=== PATIENT | male | born 1960 | race African-American/Black ===

== ENCOUNTER 2021-06-04 12:15 | Observation (INO) | payer OTHER, SELFPAY ==
[2021-06-04] VITALS (46 sets, daily range): BP systolic 92–126; BP diastolic 62–84; PULSE 68–92; RESP 14–20; TEMP 36.4–36.9; O2SAT 96–100; BMI 19.5
--- NOTE | ~2021-06-04 | CT_ITS ---
EXAMINATION: CTA chest PE protocol EXAM DATE: 06/04/2021 14:48 INDICATION: Elevated d-dimer. Syncope. TECHNIQUE: Spiral CTA of the chest (pulmonary arteries) was performed with 100 cc Omnipaque 350 intr avenous contrast injection. Images were acquired during the pulmonary arterial phase. Coronal maxi mum intensity projection 3D-reconstructions were created by the technologist on dedicated workstation . Axial, coronal and sagittal reformatted images were reviewed. The dose-length product (DLP) for t his examination was 204.22 mGy-cm. The exposure was tailored according to patient size (auto mA exp osure control), and iterative reconstruction (ASIR) was used as additional dose reduction technique. There is no prior study for comparison. FINDINGS: Pulmonary arteries are well opacified and without intraluminal filling defects. No thora cic aortic dissection. There are a couple of right middle lobe granulomata. The lungs are otherwise clear. There are no pleural or pericardial effusions. Tracheobronchial tree is patent. There is no mediastinal, hilar or axillary lymphadenopathy. There is no pneumothorax. Heart normal in siz e. There is mild coronary arterial calcification, arterial sclerosis. Upper abdomen is unremarkabl e. There is mild thoracic spondylosis without osteoblastic or osteolytic lesions identified. IMPRESSION: 1. No pulmonary emboli or acute cardiopulmonary findings. Reviewed, dictated and finalized at location B.
--- NOTE | ~2021-06-04 | US_ITS ---
EXAMINATION: US carotid duplex BI DATE: 06/05/2021 10:04 INDICATION: Syncope. TECHNIQUE: Grayscale, color Doppler, and pulsed Doppler images of the cervical carotid arteries were obtained. The degree of vessel stenosis is placed in one of the following categories: normal, <50%, 5 0-69%, >=70% but less than near-occlusion, near-occlusion, or total occlusion. Note that percent sten osis relative to normal distal artery lumen diameter is indirectly measured from velocity measurement s as described by Edi, et al. Radiology 2003; 229:340-346. COMPARISON: None. FINDINGS: RIGHT: The right common carotid artery (CCA) peak systolic velocity (PSV) is 106 cm/s. The right internal ca rotid artery (ICA) PSV is 66 cm/s. The right ICA end-diastolic velocity (EDV) is 20 cm/s. The right I CA/CCA PSV ratio is 0.6. Grayscale and color Doppler images yield an estimate of <50% diameter reduct ion from plaque in the ICA. There is antegrade flow in the right vertebral artery. LEFT: The left CCA PSV is 90 cm/s. The left ICA PSV is 51 cm/s. The left ICA EDV is 21 cm/s. The left ICA/C CA PSV ratio is 0.6. Grayscale and color Doppler images yield an estimate of <50% diameter reduction from plaque in the ICA. There is antegrade flow in the left vertebral artery. IMPRESSION: 1. <50% stenosis in the right internal carotid artery. 2. <50% stenosis in the left internal carotid artery. Reviewed, dictated and finalized at location A.
--- NOTE | ~2021-06-04 | XR_ITS ---
EXAMINATION: XR knee LT min 4V EXAM DATE: 06/04/2021 13:16 INDICATION: Fall, knee pain, limited range of motion. Initial encounter. TECHNIQUE: Left knee frontal, crosstable lateral, orthogonal oblique projections for interpretation. There is no prior study for comparison. FINDINGS: There is left knee arthroplasty hardware. There is acute closed posttraumatic mildly commin uted fractures of the left femoral distal metaphysis, proximal to the femoral component of the hardwa re. These are nondisplaced, have been indicated on the exam. Only small joint effusion. No tibial fra cture. Patella is unremarkable. IMPRESSION: Left femoral distal metaphyseal nondisplaced fractures proximal to the femoral component of arthroplasty hardware. Reviewed, dictated and finalized at location B.
--- NOTE | ~2021-06-04 | MR_ITS ---
EXAMINATION: MR brain/brain stem wo con EXAM DATE: 06/06/2021 14:16 INDICATION: Syncope. TECHNIQUE: Magnetic resonance imaging (MRI) of the brain/brain stem obtained without contrast. Sagitt al T1, axial diffusion, gradient echo (T2*), T1, T2, FLAIR sequences obtained. There is no prior st udy for comparison. FINDINGS: There are no areas of restricted diffusion to suggest acute infarction. There is no acute hemorrhage seen on the T2*, a hemosiderin sensitive sequence. No intraparenchymal brain mass. The ve ntricles are normal in size. There are no extra-axial collections. Flow voids are seen in the cereb ral arteries on the T2-weighted sequences consistent with their expected patency. The orbits are unr emarkable. Soft tissue is unremarkable. IMPRESSION: Unremarkable brain MRI examination. Reviewed, dictated and finalized at location A.
--- NOTE | ~2021-06-04 | CT_ITS ---
EXAMINATION: CT brain wo [facility] EXAM DATE: 06/04/2021 13:06 INDICATION: Syncope, on anticoagulation. TECHNIQUE: Spiral CT of the head was performed without contrast. Axial, coronal and sagittal images were reviewed. The dose-length product (DLP) for this examination was 605.33 mGy-cm. The exposure w as tailored according to patient size, and iterative reconstruction (ASIR) was used as additional dos e reduction technique. There is no prior study for comparison. FINDINGS: Mild cerebral atrophy. There is no acute intraparenchymal hemorrhage. No evidence of intra parenchymal brain mass lesion. No evidence of acute infarction. There is no mass effect or midline shift. The ventricles are normal in size. There are no extra-axial collections. There are no acute calvarial fractures. The orbits are unremarkable. Soft tissue is unremarkable. The visualized sinu ses and mastoid air cells are well aerated. IMPRESSION: 1. No acute intracranial findings. Reviewed, dictated and finalized at location B.
--- NOTE | 2021-06-04 12:23 | ED.SYNCOPE ---
HPI - Syncope General Chief Complaint: Syncope Stated Complaint: syncope Source: patient, family and EMS Mode of arrival: EMS Limitations: no limitations History of Present Illness HPI narrative: Patient is a 61-year-old male with a history of hypertension, DVT, anticoagulated on eliquis, presenting for evaluation of syncopal event. Patient states that he was finishing breakfast, had finished watching television when he stood up to walk to the bathroom. Patient states that he woke up on the floor. He denies any prodromal symptoms such as lightheadedness, dizziness, palpitations. Patient thinks that he may have hit his head. He reports a dull, aching posterior headache pain. He denies neck pain. He states his vision was initially blurred but is now normal. He denies nausea or vomiting. He denies chest pain, shortness of breath prior to the syncopal event or afterwards. Patient's states that she found him collapsed on the floor, and when she approached him he was having difficulty standing due to pain in his left knee. She was able to get him up into the bathroom, when he passed out again in the bathroom. She states that he did have some shaking activity but was not sure if he was having a seizure. No tongue biting or urinary incontinence. No fecal incontinence patient then awakened, was not confused. EMS had been called and they transferred him to this facility. In the past, patient has been seen at the [facility]. He reports only left knee pain and headache pain at the time of my assessment. He denies any recent car or air travel. No recent surgery or immobility. He denies history of syncopal event in the past. Patient denies any fever, chills, nausea or vomiting. No abdominal pain. No back pain. Denies urinary symptoms. States his oral intake has been normal for him. Related Data Home Medications Medication Instructions Recorded Confirmed amlodipine 10 mg PO DAILY 06/04/21 apixaban 5 mg PO DAILY 06/04/21 06/04/21 omeprazole 40 mg PO DAILY 06/04/21 sildenafil 100 mg PO DAILY 06/04/21 Allergies Allergy/AdvReac Type Severity Reaction Status Date / Time No Known Allergies Allergy Verified 06/04/21 12:24 Review of Systems Review of Systems: CONSTITUTIONAL: Denies fever, chills, or sweats. EYES: Denies visual changes, redness, or discharge. ENT: Denies rhinorrhea, congestion, sore throat, or otalgia. CARDIOVASCULAR: Denies chest pain, palpitations, or edema. RESPIRATORY: Denies cough or dyspnea. GASTROINTESTINAL: Denies abdominal pain, nausea, vomiting, or diarrhea. GENITOURINARY: Denies dysuria or hematuria. SKIN: Denies rash or itching. MUSCULOSKELETAL: Denies back pain, reports left knee pain NEUROLOGIC:Reports mild headache without numbness, or weakness. [facility] Social History Social History (Updated 06/04/21 @ 13:58 by Felicity Otto MD) Alcohol intake: never Substance use: never Living arrangements: with family Gender identity (if verbalized by the patient): Male Exam Narrative: GENERAL: Awake, alert, conversant HEAD: Normocephalic, atraumatic. EYES: 2+ PERRLA and EOMI. ENT: Nares clear, no rhinorrhea or epistaxis. Mucous membranes moist. NECK: Supple. CHEST: No respiratory distress, breathing even and non labored HEART: Regular rate, sinus rhythm ABDOMEN:Non distended, non tender EXTREMITIES: There is a knee effusion of the left knee. Tenderness to palpation of the patella. Decreased active range of motion with flexion extension secondary to pain. Intact distally. Popliteal pulse 2+. Posterior tibialis pulse 2+. SKIN: Warm, dry, no rash. NEURO:No focal deficits. Alert and oriented x3. Finger to nose intact bilaterally. EOMs intact without nystagmus. No facial droop/asymmetry noted bilaterally. Grimace intact. Intact sensation in face. Hearing intact bilaterally. Shoulder shrug intact. Strength 5/5 bilateral upper extremities. Strength 5/5 bilateral lower extrem
--- NOTE | 2021-06-04 12:28 | ECG_ITS ---
Measurements Intervals [place] Rate: 70 P: 85 ME: 176 QRS: 78 QRSD: 89 T: 77 QT: 389 QTc: 421 Interpretive Statements SINUS RHYTHM BASELINE ARTIFACT- I, II, III, AVR, AVL, AVF, V1-V6 NORMAL ECG Electronically Signed On 06-04-2021 13:51:12 CDT by Tereso Stuart D.O.
--- NOTE | 2021-06-04 12:57 | PC.NURSE ---
Pt to CT.
[2021-06-04] MEDS: SODIUM CHLORIDE 0.9% IV 1,000 ML 999 ML IV CONT (13:22)
[2021-06-04] MEDS: ONDANSETRON INJ 4 MG/2 ML VIAL IV PUSH (13:22)
[2021-06-04] MEDS: ACETAMINOPHEN 500 MG TABLET 1000 MG PO (13:22)
[2021-06-04 13:52] LABS: Basophils Percent Auto 0.4 % (0.2-1.2); Eosinophils Percent Auto 0.5 % (0-4.4); Hemoglobin 11.7 g/dL (14.0-18.0); Immature Granulocyte Absolute 0.04 K/mm3 (0.00-0.031); Immature Granulocyte Percent A 0.5 % (0-0.5); Lymphocytes Absolute Auto 1.31 K/mm3 (0.9-3.2); Lymphocytes Percent Auto 16.6 % (18.3-44.2); Mean Corpuscular HGB Conc 35.5 g/dl (32-36); Mean Corpuscular Hemoglobin 38.1 pg (26-34); Mean Corpuscular Volume 107.5 fl (80-100); Mean Platelet Volume 9.6 fl (7.4-10.4); Monocytes Absolute Auto 0.5 K/mm3 (0.1-0.6); Monocytes Percent Auto 6.8 % (2.6-8.5); Neutrophils Percent Auto 75.2 % (45.5-73.1); Platelet Count Result 152 k/mm3 (150-375); Red Blood Count 3.07 M/mm3 (4.6-6.20); Red Cell Distribution Width 13.7 % (11.5-14.5); White Blood Count 7.9 K/mm3 (4.5-10.0)
[2021-06-04] MEDS: MORPHINE SULFATE (*CRX) 4 MG/ML INJ IV PUSH (13:53)
[2021-06-04 14:04] LABS: Anion Gap 13 mmol/L (8-16); Blood Urea Nitrogen 12 mg/dL (9-20); Calcium 8.7 mg/dL (8.4-10.2); Carbon Dioxide 21 mmol/L (22-30); Chloride 103 mmol/L (98-107); Estimated CRCL calculation 42 ml/min; Estimated Glomerular Filt Rate 54; Glucose 94 mg/dL (65-110); Potassium 3.5 mmol/L (3.4-5.0); Sodium 137 mmol/L (137-145)
[2021-06-04 14:07] LABS: Prothrombin Time 12.9 Seconds (11.1-14.7)
[2021-06-04 14:08] LABS: Partial Thromboplastin Time 26.7 SECONDS (22.3-36.8)
[2021-06-04 14:20] LABS: Troponin I < 0.012 ng/mL (0.000-0.034)
[2021-06-04 14:24] LABS: D Dimer 6.16 ug/mL (<0.48)
[2021-06-04] MEDS: oxyCODONE HCL (*CRX) 5 MG TAB IR PO (15:56)
--- NOTE | 2021-06-04 16:00 | PM.IMHP ---
H&P: HPI History of Present Illness Date/Time: 06/04/21 16:00 Chief Complaint: Syncope. Narrative: This is a very pleasant 61-year-old male smoker with hypertension, GERD, and history of DVT on anticoagulation who presented to the emergency department earlier today via EMS from home for evaluation after a syncopal episode. He was in his usual state of health when he woke this morning and not long after eating breakfast he felt as though he had to have a bowel movement and he stood up to walk to the bathroom. Shortly thereafter his heard him fall in the hallway and she found him lying on his back. He did not recall how he ended up on the floor. was able to help him up however he had 2 subsequent episodes where he seemed to briefly lose consciousness and thus she called 911. He denies antecedent symptoms prior to his fall, specifically denying lightheadedness, dizziness, vertigo, chest pain, pleuritic pain, palpitations, nausea, vomiting, and sweats. There were no reports of seizure activity and there was no tongue biting or incontinence. He was not confused when he came to but did note that his vision was a little bit blurry when he awoke though that has resolved. He thinks he struck the back of his head on the floor and has a mild aching discomfort posteriorly. His main complaint however is of left knee pain in fact he was found to have nondisplaced fractures proximal to the femoral component of left arthroplasty hardware. Currently has no complaints. Review of Systems Review of Systems: Twelve systems were reviewed. No fever, chills, or sweats. No recent cold or flu symptoms. He has lost about 15 lb unintentionally over several months due to poor appetite and he had an endoscopy done not long ago at the [facility] which was reportedly unremarkable. He has also had a fairly recent colonoscopy and PSA, both which were unremarkable. No melena or hematochezia. He has not had diarrhea. No dysuria. No exertional chest pain or shortness of breath. No pleuritic pain. Except as documented, all other systems were reviewed and are negative. [facility] Past Medical History Medical History (Updated 06/05/21 @ 00:34 by Tsering Simental PA-C) Arthritis Deep venous thrombosis Gastroesophageal reflux disease Hypertension Nicotine dependence Pancreatitis Surgical History Surgical History History of bilateral knee arthroplasty Family History Family History (Updated 06/05/21 @ 00:29 by Tsering Simental PA-C) Other Cancer Social History Social History (Updated 06/05/21 @ 00:30 by Tsering Simental PA-C) Social History: Surrogate decision maker: Kavita Evans, . Code status: Full code. Smoking packs per day: 1 Smoking cigarettes per day: 20.0 Years smoked: 45 Smoking pack-years: 45.00 Smoking status: Current every day smoker Alcohol intake: current Drinks per week: 13 Substance use: never Living arrangements: with family Additional living arrangements comments: The patient lives with his in [place]. Additional occupation/education comments: [employer] . Meds Home Medications and Allergies Home Medications Medication Instructions Recorded Confirmed Type amlodipine 10 mg PO DAILY 06/04/21 06/04/21 History apixaban 2.5 mg PO BID 06/04/21 06/04/21 History omeprazole 40 mg PO DAILY 06/04/21 06/04/21 History sildenafil 100 mg PO DAILY PRN 06/04/21 06/04/21 History Allergies Allergy/AdvReac Type Severity Reaction Status Date / Time No Known Allergies Allergy Verified 06/04/21 12:24 Vital Signs Vital Signs - 24 hr 06/04/21 12:18 06/04/21 12:19 06/04/21 12:20 Temperature 97.6 F Pulse Rate 70 73 84 Respiratory Rate 16 20 20 Blood Pressure 103/64 103/64 Pulse Oximetry 100 98 06/04/21 12:37 06/04/21 12:45 06/04/21 12:46 Temperature Pulse Rate 69 72 70 Respiratory Rate 14 18 17 Blood
--- NOTE | 2021-06-04 17:00 | PC.NURSE ---
Report given to FALGUNI Goldberg. Room not clean at this time.
--- NOTE | 2021-06-04 18:00 | PC.NURSE ---
Pt and family updated. Waiting for room to be cleaned to transport to floor.
--- NOTE | 2021-06-04 21:11 | PC.NURSE ---
This patient, Ty Evans, was admitted to Medical Room 343-01. Patient/family oriented to hospital policies and general routines including ID bracelet, bed and alarms, visiting hours, pain management, procedures, bathroom and other care routines, personal items, smoking policy, room service/diet, and visiting hours. Information on how to activate the Rapid Response Team has been discussed. Patient/Family are encouraged to report perceived risks to care and to ask questions if they do not understand what they are told or what they should do. Immobilizer to left leg in place.
[2021-06-04] MEDS: ACETAMINOPHEN 325 MG TABLET 650 MG PO (21:45)
[2021-06-05] VITALS (12 sets, daily range): BP systolic 109–134; BP diastolic 68–78; PULSE 72–107; RESP 16–18; TEMP 36.1–37.1; O2SAT 100; BMI 19.5
--- NOTE | 2021-06-05 00:36 | ECHO_ITS ---
Patient Info Name: Ty Evans Age: 61 years : 1960 Gender: Male Ht: 72 in Wt: 143 lbs BSA: 1.80 m2 HR: 97 bpm BP: 127 / 72 mmHg Heart Rhythm: Sinus Rhythm Technical Quality: Fair Exam Date: 06/05/2021 12:18 PM Exam Location: [facility] Pulmonary Exam Room: 343 Patient Status: Outpatient Admit Date: 06/04/2021 Staff Ordering Physician: Tsering Simental PA-C Research Program Manager: Temitope Rosales RDCS Attending Provider: Blanca Archuleta PA-C Referring Physician: Hola IRVING; Exam Type: CA echo doppler color flow Study Info Indications - SYNCOPE HTN Complete two-dimensional, color flow and Doppler transthoracic echocardiogram is performed. Summary 1. Complete two-dimensional, color flow and Doppler transthoracic echocardiogram is performed. 2. Left ventricular chamber size wall thickness are normal with no regional wall motion abnormalities. The left ventricular function was at the lower limit of normal with a calculated ejection fraction of 56%, and a visually estimated ejection fraction of 50-55%. Grade 1 diastolic dysfunction is present. 3. Left atrial chamber dimension is borderline enlarged. 4. Mild pulmonary hypertension, estimated pulmonary arterial systolic pressure is 36 mmHg. 5. Trace mitral and tricuspid regurgitation. 6. Somewhat technically difficult study; the best views were subcostal. 7. Normal sinus rhythm. Left Ventricle Left ventricular chamber dimension is normal. Left ventricular systolic function is normal, estimated at 50-55%. There is no increased left ventricular wall thickness. Left ventricular septal wall motion is normal. The left ventricular diastolic function is grade I diastolic dysfunction. Left ventricular chamber size wall thickness are normal with no regional wall motion abnormalities. The left ventricular function was at the lower limit of normal with a calculated ejection fraction of 56%, and a visually estimated ejection fraction of 50-55%. Grade 1 diastolic dysfunction is present. Right Ventricle Right ventricular chamber dimension is normal. Right ventricular systolic function is normal. Left Atria Left atrial chamber dimension is borderline enlarged. Right Atria Right atrial chamber dimension is normal. Aortic Valve The aortic valve is trileaflet. There is no aortic valve sclerosis. There is no aortic valve stenosis. There is no aortic valve regurgitation. Pulmonic Valve The pulmonic valve is normal. There is no pulmonic valve stenosis. There is trace pulmonic regurgitation. Mitral Valve The mitral valve has normal leaflets and thickened leaflets. There is no mitral valve stenosis. There is trace mitral valve regurgitation. Tricuspid Valve The tricuspid valve leaflets are normal. There is no significant tricuspid valve stenosis. There is trace tricuspid valve regurgitation. Mild pulmonary hypertension, estimated pulmonary arterial systolic pressure is 36 mmHg. Pericardium/Pleural The pericardium appears normal. There is no pericardial effusion. Inferior Vena Cava Normal inferior vena cava with >50% collapse upon inspiration consistent with Empty right atrial pressure, 10 mmHg. Aorta The aortic root size at the sinus of Valsalva is normal. The prox ascending aorta size is normal. Left Ventricular Outflow Tract Name Value Normal
[2021-06-05] MEDS: SODIUM CHLORIDE 0.9% IV 1,000 ML 100 ML IV CONT (01:15)
[2021-06-05] MEDS: HYDROcodone/acetaminophen (*CRX) 5-325 MG TABLET 1 TAB PO ×2 (01:17→08:46)
[2021-06-05] MEDS: amLODIPine BESYLATE 5 MG TABLET 10 MG PO (08:46)
[2021-06-05] MEDS: PANTOPRAZOLE 40 MG TABLET PO (08:46)
[2021-06-05] MEDS: APIXABAN 2.5 MG TABLET PO ×2 (08:46→17:13)
--- NOTE | 2021-06-05 10:00 | PCOTNOTE ---
Attempted to evaluated for occupational therapy. Pt. away from room for ultrasound. Will return later.
[2021-06-05 10:26] LABS: Basophils Percent Auto 0.3 % (0.2-1.2); Eosinophils Absolute Auto 0.1 K/mm3 (0-0.3); Eosinophils Percent Auto 1.7 % (0-4.4); Hematocrit 34.9 % (42.0-52.0); Immature Granulocyte Absolute 0.02 K/mm3 (0.00-0.031); Immature Granulocyte Percent A 0.3 % (0-0.5); Lymphocytes Absolute Auto 1.37 K/mm3 (0.9-3.2); Lymphocytes Percent Auto 21.3 % (18.3-44.2); Mean Corpuscular HGB Conc 34.4 g/dl (32-36); Mean Corpuscular Volume 107.7 fl (80-100); Mean Platelet Volume 9.8 fl (7.4-10.4); Monocytes Absolute Auto 0.7 K/mm3 (0.1-0.6); Monocytes Percent Auto 10.7 % (2.6-8.5); Neutrophils Absolute Auto 4.2 K/mm3 (1.3-6.7); Neutrophils Percent Auto 65.7 % (45.5-73.1); Platelet Count Result 146 k/mm3 (150-375); Red Blood Count 3.24 M/mm3 (4.6-6.20); Red Cell Distribution Width 13.4 % (11.5-14.5); White Blood Count 6.4 K/mm3 (4.5-10.0)
[2021-06-05 10:39] LABS: Anion Gap 12 mmol/L (8-16); Blood Urea Nitrogen 8 mg/dL (9-20); Calcium 8.8 mg/dL (8.4-10.2); Carbon Dioxide 20 mmol/L (22-30); Chloride 104 mmol/L (98-107); Estimated CRCL calculation 70 ml/min; Estimated Glomerular Filt Rate > 60; Glucose 98 mg/dL (65-110); Potassium 3.3 mmol/L (3.4-5.0); Sodium 136 mmol/L (137-145)
[2021-06-05] MEDS: diazePAM (*CRX) 5 MG TABLET PO (10:58)
--- NOTE | 2021-06-05 11:58 | PM.IMPN ---
Progress Note: A&P Assessment and Plan (1) Syncope: Code(s): R55 - Syncope and collapse Status: Acute Assessment and Plan: The patient presented to the emergency department earlier this morning from home after multiple syncopal episodes. Significant other states he passed out while walking into the bathroom. She was able to sit in up on the side of the tub where he had a second, then, third syncopal episode. He was not postictal or having any seizure like activity. She states he does not drink much fluids during the day. Work up shows no signs of infection CTA Chest/Abd/Pelvis Further syncope work up being completed: Echo, MRI Brain, Carotid US which are pending at this time The patient did sustain a fracture proximal to the arthroplasty hardware in the left knee and he has been placed in a brace. A bed was not available at the [place] where he had his knee replaced and Dr. Pruitt was consulted from the ER and I saw him in the [facility] who recommended nonweightbearing for a few weeks until he sees his orthopedic specalist at the [place]. Keep the Brace on while out of bed moving around for stabilization. Can bend at the knee, place pillow under leg as needed for comfort. 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 I will HOLD Amlodipine due to lightheadedness this afternoon and low/normal BP. Continue monitoring. (6) Renal insufficiency: Code(s): N28.9 - Disorder of kidney and ureter, unspecified Status: Acute Assessment and Plan: Patient does have an elevated creatinine though he has no known history of renal insufficiency. Creatinine normalized with IV fluids in the ER. Now Creatinine is normal. This does show dehydration and possible reason why he had passed out. Pending Records that were requested from [place] for comparison. (7) Nicotine dependence: Code(s): F17.200 - Nicotine dependence, unspecified, uncomplicated Status: Acute Assessment and Plan: Smoking cessation encouraged for 3 minutes. Time Spent With Patient Time with patient: 25 - 35 minutes Subjective Date/time seen: 06/05/21 11:58 Interval history: Date of Service 06/05/21: The patient states he is feeling a little lightheaded at this time while sitting up eating lunch and after just receiving some pain medications and muscle relaxant. BP was 109/78. He denies any chest pain, SOB, cough, fever, chills, nausea, vomiting, abdominal pain, dysuria, frequent urination, trouble with urination, foul odor to urine, leg swelling, calf pain or any other symptms at this time. Review of Systems Review of Systems: All systems reviewed & are unremarkable except as noted in HPI and below Exam Narrative: General: 61-year-old man sitting up in the chair with left leg in immobilization brace eating lunch. Appears comfortable. In no acute distress. Skin: No jaundice or cyanosis. Good skin turgor. Neck: Full range of motion. Supple. Respiratory: Decreased breath sounds bilaterally, no wheezing, rales or rhonchi. No bony chest wall tenderness. Cardiovascular: The heart has a regular rate and rhythm without murmur. Lower extremities: Left leg in immobilization brace. NVID
[2021-06-05 13:05] LABS: Iron 33 ug/dL (49-181)
[2021-06-05 13:12] LABS: Magnesium 1.2 mg/dL (1.6-2.3)
[2021-06-05 13:15] LABS: Percent Iron Saturation 15 % (20-50)
[2021-06-05] MEDS: POTASSIUM CHLORIDE 20 MEQ TABLET 40 MEQ PO (13:52)
[2021-06-05] MEDS: HYDROcodone/acetaminophen (*CRX) 7.5-325 MG TABLET 1 TAB PO ×3 (13:52→21:23)
[2021-06-05 14:24] LABS: Folic Acid 4.6 ng/mL (2.76->20)
[2021-06-05] MEDS: MAGNESIUM SULF 4 GM/WATER100ML 4 GM/100 ML BAG IVPB (17:13)
[2021-06-05] MEDS: CYANOCOBALAMIN 1,000 MCG TABLET 1000 MCG PO (17:13)
[2021-06-05] MEDS: CYCLOBENZAPRINE HCL 10 MG TABLET PO (20:12)
[2021-06-06] VITALS (7 sets, daily range): BP systolic 112–118; BP diastolic 69–81; PULSE 80–106; RESP 16–20; TEMP 36.3–37; O2SAT 100
[2021-06-06] MEDS: HYDROcodone/acetaminophen (*CRX) 7.5-325 MG TABLET 1 TAB PO ×2 (05:26→12:18)
[2021-06-06 06:07] LABS: Hemoglobin 11.6 g/dL (14.0-18.0); Mean Corpuscular HGB Conc 35.2 g/dl (32-36); Mean Corpuscular Hemoglobin 37.1 pg (26-34); Mean Corpuscular Volume 105.4 fl (80-100); Mean Platelet Volume 10.3 fl (7.4-10.4); Platelet Count Result 147 k/mm3 (150-375); Red Blood Count 3.13 M/mm3 (4.6-6.20); Red Cell Distribution Width 13.4 % (11.5-14.5); White Blood Count 4.9 K/mm3 (4.5-10.0)
[2021-06-06 06:25] LABS: Anion Gap 8 mmol/L (8-16); Blood Urea Nitrogen 7 mg/dL (9-20); Calcium 8.5 mg/dL (8.4-10.2); Carbon Dioxide 24 mmol/L (22-30); Chloride 101 mmol/L (98-107); Estimated CRCL calculation 70 ml/min; Estimated Glomerular Filt Rate > 60; Glucose 88 mg/dL (65-110); Magnesium 1.8 mg/dL (1.6-2.3); Potassium 3.1 mmol/L (3.4-5.0); Sodium 133 mmol/L (137-145)
[2021-06-06] MEDS: APIXABAN 2.5 MG TABLET PO ×2 (08:01→16:33)
[2021-06-06] MEDS: CYANOCOBALAMIN 1,000 MCG TABLET 1000 MCG PO (08:01)
[2021-06-06] MEDS: CYCLOBENZAPRINE HCL 10 MG TABLET PO ×2 (08:01→15:36)
[2021-06-06] MEDS: PANTOPRAZOLE 40 MG TABLET PO (08:01)
[2021-06-06] MEDS: POTASSIUM CHLORIDE 20 MEQ TABLET 60 MEQ PO (09:20)
--- NOTE | 2021-06-06 13:46 | PCOTNOTE ---
Attempted to see pt for therapy however, pt was being prepared to go have an MRI done. Will continue per poc duration/frequency tomorrow.
--- NOTE | 2021-06-06 15:55 | PM.DS ---
DS: Admitting Diagnosis Discharge Date 06/06/21 Admitting Diagnosis Syncope, leg pain DS: Discharge Diagnosis Discharge Diagnosis (1) Syncope: Code(s): R55 - Syncope and collapse Status: Acute Assessment and Plan: The patient is a 61 year old man with a history of tobacco abuse, HTN, Hx DVT on prophylactic therapy with Eliquis, presented to the emergency department from home after multiple syncopal episodes. Significant other states he passed out while walking into the bathroom. She was able to sit in up on the side of the tub where he had a second, then, third syncopal episode. He was not postictal or having any seizure like activity. She states he does not drink much fluids during the day. Work up shows no signs of infection or PE on CTA Chest/Abd/Pelvis Further syncope work up completed with- -- Echo showing Left ventricular chamber size wall thickness are normal with no regional wall motion abnormalities. The left ventricular function was at the lower limit of normal with a calculated ejection fraction of 56%, and a visually estimated ejection fraction of 50-55%. Grade 1 diastolic dysfunction is present. Mild pulmonary HTN. -- MRI Brain showing Unremarkable brain MRI examination. -- Carotid US showing <50% stenosis in the right internal carotid artery and <50% stenosis in the left internal carotid artery. -- Telemetry showing NSR rate 73 bpm with very few PVCs, otherwise no acute abnormality. After IV fluid hydration the patients creatinine improved from 1.6 to normal 0.9 showing that he was dehydrated on arrival which could be the cause of his syncopal episodes prior to arrival. I also stopped his Norvasc because he BP has been normal here and want to prevent hypotension from over medication He is feeling well at this time without any complaints of lightheadedness or syncope. The patient did sustain a fracture proximal to the arthroplasty hardware in the left knee and he has been placed in a brace. A bed was not available at the [facility] where he had his knee replaced and Dr. Pruitt was consulted from the ER and I saw him in the [facility] [place] who recommended nonweightbearing for a few weeks until he sees his orthopedic specalist at the [place]. Keep the Brace on while out of bed moving around for stabilization. Can bend at the knee, place pillow under leg as needed for comfort. He will be discharged on Flexeril 10 mg TID for muscle spasms and [place] as needed for pain control. Continue home apixaban Follow up with [facility] specialist in 1 week. The patient worked with PT/OT and feels comfortable with going home with home health at this time. Return to ER warnings given. Found to have hypomagnesemia and hypokalemia which were replenished. Also found to be vitamin B12 deficient and started on Cyanocobalamin daily. (2) Closed left femoral fracture: Code(s): S72.92XA - Unspecified fracture of left femur, initial encounter for closed fracture Status: Acute Assessment and Plan: See above (3) Current use of usp anticoagulation: Code(s): Z79.01 - USP (current) use of anticoagulants Status: Acute Assessment and Plan: Continue eliquis (4) Hypertension: Code(s): I10 - Essential (primary) hypertension Status: Acute (5) Gastroesophageal reflux disease: Code(s): K21.9 - Gastro-esophageal reflux disease without esophagitis Status: Acute (6) Renal insufficiency: Code(s): N28.9 - Disorder of kidney and ureter, unspecified Status: Acute (7) Nicotine dependence: Code(s): F17.200 - Nicotine dependence, unspecified, uncomplicated Status: Acute (8) Macrocytic anemia: Code(s): D53.9 - Nutritional anemia, unspecified Status: Acute (9) Vitamin B12 deficiency: Code(s): E53.8 - Deficiency of other specified B group vitamins Status: Acute (10) Hypokalemia: Code(s): E8
== END 2021-06-06 17:42 | disposition home health service (06) ==
LOC: ANHED 15:30 → ANH3MED 19:50
PROVIDERS: Physician Assistant; Admitting Provider Family Medicine; Emergency Provider Emergency Medicine; Visit Provider Internal Medicine
DX: R55 Syncope and collapse (principal); S72.492A Other fracture of lower end of left femur, initial encounter for closed fracture; M97.12XA Periprosthetic fracture around internal prosthetic left knee joint, initial encounter; W19.XXXA Unspecified fall, initial encounter; D53.9 Nutritional anemia, unspecified; E87.6 Hypokalemia; E53.8 Deficiency of other specified B group vitamins; I10 Essential (primary) hypertension; F17.290 Nicotine dependence, other tobacco product, uncomplicated; K21.9 Gastro-esophageal reflux disease without esophagitis; N28.9 Disorder of kidney and ureter, unspecified; Z86.718 Personal history of other venous thrombosis and embolism; Z79.01 Long term (current) use of anticoagulants; Z96.653 Presence of artificial knee joint, bilateral
CPT/HCPCS: 36415; 70450; 70551; 71275; 73564; 80048; 82607; 82728; 82746; 83540; 83550; 83735; 84443; 84484; 85025; 85027; 85380; 85610; 85730; 93005; 93306; 93880; 96361; 96374; 96375; 97110; 97162; 97166; 97530; 99285; A9270; G0378; J2270; J2405; J3475; J7030; Q9967

== ENCOUNTER 2022-06-23 15:44 | Observation (INO) | payer OTHER, SELFPAY ==
--- NOTE | ~2022-06-23 | US_ITS ---
EXAMINATION: US abdomen limited DATE: 06/24/2022 12:06 INDICATION: Abnormal liver function tests. TECHNIQUE: Multiple grayscale and Doppler ultrasound images of the abdomen were obtained. COMPARISON: Chest CT 06/04/2021 FINDINGS: The visualized portions of the head, body, and tail of the pancreas are normal. There is di ffuse hepatic steatosis. There is normal flow in main portal vein. The gallbladder is normal in size and contains sludge. No gallstones or gallbladder wall thickening. There is no sonographic [place] sig n. The common duct is normal and measures 5 mm. IMPRESSION: 1. Diffuse hepatic steatosis. Reviewed, dictated and finalized at location A. ESY TEACHER
--- NOTE | ~2022-06-23 | MR_ITS ---
EXAMINATION: MR brain/brain stem wo/w con DATE: 06/24/2022 12:13 INDICATION: Syncope. TECHNIQUE: Magnetic resonance imaging (MRI) of the brain and brainstem was performed without and with 13 mL MultiHance intravenous contrast. COMPARISON: Head CT 06/04/2021, brain MRI 06/06/2021 FINDINGS: There are scattered areas of nonspecific increased T2-weighted signal intensity in the cere bral white matter, which is within normal limits for the patient's age. There is no intracranial hemo rrhage, acute infarction, or abnormal intracranial mass lesion. The ventricles are normal in size. Th e orbits are normal. There is mild mucosal thickening in the paranasal sinuses. The mastoid air cells are normal. IMPRESSION: 1. Normal aging brain. Reviewed, dictated and finalized at location A. NICAL INTERNSHIP IMPRESSION: 1. Normal aging brain.
--- NOTE | ~2022-06-23 | US_ITS ---
EXAMINATION: US carotid duplex BI DATE: 06/24/2022 12:01 INDICATION: Vertigo. TECHNIQUE: Grayscale, color Doppler, and pulsed Doppler images of the cervical carotid arteries were obtained. The degree of vessel stenosis is placed in one of the following categories: normal, <50%, 5 0-69%, >=70% but less than near-occlusion, near-occlusion, or total occlusion. Note that percent sten osis relative to normal distal artery lumen diameter is indirectly measured from velocity measurement s as described by Edi, et al. Radiology 2003; 229:340-346. Notes: Normal: Peak systolic velocity <125 centimeters/sec and no plaque <50%. Peak systolic velocity <125 ( EDV <40; ICA/CCA PSV ratio <2.0; used these factors only a tandem lesions or low cardiac output or co ntralateral disease) 50-69 %: PSV 125-230 (EDV 40-100; ratio 2-4) >= 70% but less than near occlusion: PSV greater than 230 (EDV > 100; ratio> 4.0) Near Occlusion: PSV that is variable; markedly narrowed lumen Occlusion: Absent flow on color/spectral Doppler and no lumen on diamond scale. COMPARISON: Ultrasound dated 06/05/2021. FINDINGS: RIGHT: The right common carotid artery (CCA) peak systolic velocity (PSV) is 96 cm/s. The right internal car otid artery (ICA) PSV is 64 cm/s. The right ICA end-diastolic velocity (EDV) is 23 cm/s. The right IC A/CCA PSV ratio is 0.7. The external carotid artery (ECA) PSV is 83 cm/s. There is antegrade flow in the right vertebral artery. LEFT: The left CCA PSV is 108 cm/s. The left ICA PSV is 65 cm/s. The left ICA EDV is 26 cm/s. The left ICA/ CCA PSV ratio is 0.6. The ECA PSV is 54 cm/s. There is antegrade flow in the left vertebral artery. IMPRESSION: 1. Less than 50% stenosis in the right internal carotid artery by sonographic criteria. 2. Less than 50% stenosis in the left internal carotid artery by sonographic criteria. Reviewed, dictated and finalized at location A. NG FRAME TENDER IMPRESSION: 1. Less than 50% stenosis in the right internal carotid artery by sonographic c kim. 2. Less than 50% stenosis in the left internal carotid artery by sonographic cr socrates.
[2022-06-23 15:51] VITALS: BP 104/78; PULSE 90; RESP 16; TEMP 36.8; O2SAT 100
--- NOTE | 2022-06-23 16:25 | ECG_ITS ---
Measurements Intervals [place] Rate: 79 P: 76 [place]: 171 QRS: 56 QRSD: 81 T: 59 QT: 343 QTc: 394 Interpretive Statements SINUS RHYTHM NORMAL ECG COMPARED TO ECG 06/04/2021 12:19:56 NO SIGNIFICANT CHANGES Electronically Signed On 06-23-2022 20:28:32 ERECTOR OPERATOR by Tereso Stuart D.O.
--- NOTE | 2022-06-23 16:26 | ED.SYNCOPE ---
HPI - Syncope General Chief Complaint: Seizure Stated Complaint: seizure Time Seen by Provider: 06/23/22 16:18 History of Present Illness HPI narrative: Pt got up and was standing and got lightheaded and was not responding. Daughter was there and said he was shaking a bit and not responding and she lowered him to the floor. Once lying down pt immediately responsive. Pt denies CP or SOB. Pt has intermittent abdominal pain but not now. Pt has pancreatitis history. Related Data Home Medications Medication Instructions Recorded Confirmed amlodipine 10 mg tablet 10 mg PO DAILY 06/04/21 06/04/21 apixaban 5 mg tablet 2.5 mg PO BID 06/04/21 06/04/21 omeprazole 40 mg capsule,delayed 40 mg PO DAILY 06/04/21 06/04/21 release sildenafil 100 mg tablet 100 mg PO DAILY PRN Erectile 06/04/21 06/04/21 Dysfunction Allergies Allergy/AdvReac Type Severity Reaction Status Date / Time No Known Allergies Allergy Verified 06/23/22 15:56 Review of Systems Review of Systems: All systems reviewed & are unremarkable except as noted in HPI and below PMFSH Past Medical History Medical History (Updated 06/23/22 @ 19:27 by Latha Vega III, DO) Arthritis Deep venous thrombosis Gastroesophageal reflux disease Hypertension Nicotine dependence Pancreatitis Surgical History Surgical History History of bilateral knee arthroplasty Family History Family History (Updated 06/05/21 @ 00:29 by Tsering Simental PA-C) Other Cancer Social History Social History (Updated 06/05/21 @ 00:30 by Tsering Simental PA-C) Social History: Surrogate decision maker: Kavita Evans, . Code status: Full code. Smoking packs per day: 1 Smoking cigarettes per day: 20.0 Years smoked: 45 Smoking pack-years: 45.00 Smoking status: Current every day smoker Alcohol intake: current Drinks per week: 13 Substance use: never Additional living arrangements comments: The patient lives with his in [place]. Additional occupation/education comments: Disabled [employer] . Spiritual care concerns: No Exam Const: General: healthy appearing Nutritional Appearance: well nourished Orientation/consciousness: patient oriented x3 Limitations: no limitations Eyes: Pupils: Equal, round and reactive pupils present EOM: EOMs intact bilaterally Chest: Chest palpation & inspection: normal inspection of the chest Resp: Effort & Inspection: normal respiratory effort Auscultation: clear to auscultation bilaterally Cardio: Rate: regular rate Rhythm: regular rhythm GI: GI Palp: Yes Soft to palpation Auscultation: normal bowel sounds Skin: General skin exam: normal color Rashes: no rashes Neuro: General: patient oriented x3 and moves all extremities Cranial nerves: Yes Nystagmus not present Speech: normal speech Extrem: General: normal to inspection and no clubbing, cyanosis or edema Psych: Mental Status: mental status grossly normal Affect: normal affect Attitude: cooperative Course Vital Signs Vital signs: Vital Signs Temperature 98.2 F 06/23/22 15:51 Pulse Rate 90 06/23/22 15:51 Respiratory Rate 16 06/23/22 15:51 Blood Pressure 104/78 06/23/22 15:51 Pulse Oximetry 100 06/23/22 15:51 Oxygen Delivery Room Air 06/23/22 15:51 Temperature 98.2 F 06/23/22 15:51 Pulse Rate 84 06/23/22 16:30 Respiratory Rate 19 06/23/22 16:30 Blood Pressure 96/66 L 06/23/22 16:30 Pulse Oximetry 99 06/23/22 16:30 Oxygen Delivery Room Air 06/23/22 15:51 MDM - Syncope Lab Data Result diagrams: 06/23/22 17:03 06/23/22 17:03 Labs: Lab Results 06/23/22 06/23/22 06/23/22 Range/Units 16:37 17:03 17:03 WBC 8.0 (4.5-10.0) K/mm3 RBC 3.80 L (4.6-6.20) M/mm3 Hgb 14.1 (14.0-18.0) g/dL Hct 40.5 L (42.0-52.0) % MCV 106.6 H (80-100) fl MCH 37.1 H
[2022-06-23 16:30] VITALS: BP 96/66; PULSE 84; RESP 19; O2SAT 99
[2022-06-23 16:40] LABS: Glucose Point of Care 135 mg/dl (65-105)
[2022-06-23 17:18] LABS: Basophils Absolute Auto 0.1 K/mm3 (0.0-0.1); Basophils Percent Auto 0.6 % (0.2-1.2); Eosinophils Absolute Auto 0.2 K/mm3 (0-0.3); Eosinophils Percent Auto 1.9 % (0-4.4); Hematocrit 40.5 % (42.0-52.0); Hemoglobin 14.1 g/dL (14.0-18.0); Immature Granulocyte Absolute 0.05 K/mm3 (0.00-0.031); Immature Granulocyte Percent A 0.6 % (0-0.5); Lymphocytes Absolute Auto 2.74 K/mm3 (0.9-3.2); Lymphocytes Percent Auto 34.1 % (18.3-44.2); Mean Corpuscular HGB Conc 34.8 g/dl (32-36); Mean Corpuscular Hemoglobin 37.1 pg (26-34); Mean Corpuscular Volume 106.6 fl (80-100); Mean Platelet Volume 9.8 fl (7.4-10.4); Monocytes Absolute Auto 0.9 K/mm3 (0.1-0.6); Monocytes Percent Auto 11.2 % (2.6-8.5); Neutrophils Absolute Auto 4.1 K/mm3 (1.3-6.7); Neutrophils Percent Auto 51.6 % (45.5-73.1); Platelet Count Result 250 k/mm3 (150-375); Red Cell Distribution Width 13.7 % (11.5-14.5)
[2022-06-23 17:24] LABS: INR 1.3; Partial Thromboplastin Time 31.5 SECONDS (22.3-36.8); Prothrombin Time 15.4 Seconds (11.1-14.7)
[2022-06-23 17:30] LABS: Lipase 284 U/L (23-300)
[2022-06-23 17:36] LABS: Platelet Estimate Adequate (Adequate)
[2022-06-23 17:37] LABS: Macrocytosis 1+ (NORMAL); Ovalocytes 1+ (NORMAL)
[2022-06-23 17:39] LABS: Schistocytes None Seen (NORMAL)
[2022-06-23 17:40] LABS: Troponin I < 0.012 ng/mL (0.000-0.034)
[2022-06-23 17:55] LABS: Alanine Aminotransferase 85 U/L (6-50); Albumin Level 4.9 g/dL (3.5-5.1); Alkaline Phosphatase 80 U/L (38-126); Anion Gap 24 mmol/L (8-16); Aspartate Amino Transferase 101 U/L (17-59); Bilirubin,Total 2.1 mg/dL (0.2-1.3); Blood Urea Nitrogen 15 mg/dL (9-20); Calcium 9.9 mg/dL (8.4-10.2); Carbon Dioxide 18 mmol/L (22-30); Chloride 95 mmol/L (98-107); Estimated CRCL calculation 38 ml/min; Estimated Glomerular Filt Rate 50; Glucose 128 mg/dL (65-110); Potassium 2.7 mmol/L (3.4-5.0); Sodium 137 mmol/L (137-145)
[2022-06-23] MEDS: SODIUM CHLORIDE 0.9% IV 1,000 ML 999 ML IV CONT (18:00)
--- NOTE | 2022-06-23 19:45 | PM.IMHP ---
H&P: HPI History of Present Illness Date/Time: 06/23/22 19:45 Chief Complaint: Syncope versus seizure. Narrative: This is a very pleasant 62-year-old male smoker with history of DVT on chronic anticoagulation, hypertension, and GERD who presented to the emergency department via EMS for evaluation of syncope versus seizure. He felt just fine when he got up this morning and he and his went out to lunch at [employer]. His stomach felt a little bit upset after eating his sandwich and he reports having a normal bowel movement at the restaurant before they left to go shopping. Well checking out at [employer] he suddenly began to feel nauseated, shaky, and weak. His helped him down onto the ground and she notes that his arms and legs were shaking and she thought he was having a seizure. This lasted perhaps 15 seconds and he was alert and oriented once he came to. He was incontinent of a large loose stool with the episode, however. In the emergency department his blood pressure was soft at 96/66 and that has since improved with IV fluids. His labs were significant for an acute kidney injury with a near doubling of his creatinine from baseline, hypokalemia, and mild transaminitis. He is feeling okay at the time my evaluation and he has no specific complaints. He has not had any recent illnesses though he did wake up with a headache this morning and he took some Tylenol for that. He also took his usual medications and he denies that he could have accidentally taken too many medications. He reports eating and drinking as usual and he does not feel as though he is dehydrated. He has not had any vomiting and only had 1 loose stool today as detailed above. He has a history of possible seizure versus syncope in May 2021 but he has no known history of seizure disorder and he is not on any medications for such. He typically has 2 to 3 alcoholic beverages most nights of the week though he has not had alcohol for several days. He denies ever having signs or symptoms of alcohol withdrawal and at this time he appears calm. He has not had sweats, tremors, or hallucinations. He also denies chest pain, pleuritic pain, palpitations, and shortness of breath. Review of Systems Review of Systems: Twelve systems were reviewed and are negative except for as per HPI. [facility] Past Medical History Medical History (Updated 06/24/22 @ 00:44 by Tsering Simental PA-C) Arthritis Chronic anticoagulation Closed left femoral fracture Deep venous thrombosis Gastroesophageal reflux disease Hypertension Nicotine dependence Pancreatitis Vitamin B12 deficiency Surgical History Surgical History History of bilateral knee arthroplasty Family History Family History Mother Hypertension Sibling Hypertension Other Cancer Social History Social History Social History: Surrogate decision maker: Kavita Evans, . Code status: Full code. Smoking packs per day: 1 Smoking cigarettes per day: 20.0 Years smoked: 45 Smoking pack-years: 45.00 Smoking status: Current every day smoker Alcohol intake: current Drinks per week: 15 Substance use: current Substance use type: marijuana Lack of Transportation: No Lack of Food: Never True Current Housing: I Have Housing Concerned About Future Housing: No Difficulty Paying Gas/Electric Bills: No Difficulty Paying for Meds: No Currently Unemployed: No Education: High School Diploma/GED Difficulty w/ Childcare or Family Care: No Additional living arrangements comments: The patient lives with his in [place]. Additional occupation/education comments: Disabled [employer] . Spiritual care concerns: No Meds Home Medications and Allergies Home Medications Medication Instructions Recorded
[2022-06-23] MEDS: SODIUM CHLORIDE 0.9% IV 1,000 ML 125 ML IV CONT (19:49)
[2022-06-23] MEDS: POTASSIUM CHLORIDE 20 MEQ TABLET 40 MEQ PO (19:50)
[2022-06-23] MEDS: KCL 20 MEQ/SW 100 ML 100 ML 50 MEQ IVPB (19:50)
[2022-06-23 20:47] LABS: Influenza A QL RT-PCR Negative (Negative); Influenza B QL RT-PCR Negative (Negative); SARS-CoV-2 RNA PCR Negative
[2022-06-23 22:32] VITALS: BP 129/80; PULSE 87; RESP 20; TEMP 36.2; O2SAT 100
[2022-06-23 22:34] VITALS: BP 147/90
[2022-06-23 22:37] VITALS: BP 121/84; BP 130/80; BP 136/92; PULSE 85; PULSE 88; RESP 18; RESP 20; O2SAT 98
[2022-06-23 22:39] VITALS: BMI 19.5
[2022-06-23 22:40] VITALS: BP 136/92; PULSE 88; RESP 18; TEMP 36.2; O2SAT 98; BMI 19.5
--- NOTE | 2022-06-23 22:48 | ADMGEN ---
This patient, Ty Evans, was admitted to Medical Room 348-01. Patient/family oriented to hospital policies and general routines including ID bracelet, bed and alarms, visiting hours, pain management, procedures, bathroom and other care routines, personal items, smoking policy, room service/diet, and visiting hours. Information on how to activate the Rapid Response Team has been discussed. Patient/Family are encouraged to report perceived risks to care and to ask questions if they do not understand what they are told or what they should do.
[2022-06-24] VITALS (13 sets, daily range): BP systolic 108–125; BP diastolic 71–82; PULSE 78–93; RESP 16–20; TEMP 36.8–37.2; O2SAT 98–100
--- NOTE | 2022-06-24 00:48 | ECHO_ITS ---
Patient Info Name: Ty Evans Age: 62 years : 1960 Gender: Male Ht: 72 in Wt: 143 lbs BSA: 1.80 m2 HR: 75 bpm BP: 122 / 80 mmHg Heart Rhythm: Sinus Rhythm Technical Quality: Good Exam Date: 06/24/2022 10:29 AM Exam Location: [facility] Pulmonary Patient Status: Outpatient Admit Date: 06/23/2022 Staff Ordering Physician: Tsering Simental PA-C [employer] Consultant: Temitope Rosales RCS Attending Provider: Mikaela Sahu M.A., MD Referring Physician: Hola IRVING; Exam Type: CA echo doppler color flow Study Info Indications R55 - Syncope and collapse Complete two-dimensional, color flow and Doppler transthoracic echocardiogram is performed. Summary 1. Complete two-dimensional, color flow and Doppler transthoracic echocardiogram is performed. 2. Left ventricular systolic function is normal, estimated at 60-65%. 3. The left ventricular diastolic function is grade I diastolic dysfunction. 4. Right ventricular systolic function is normal. 5. There is mild tricuspid valve regurgitation. Left Ventricle Left ventricular chamber dimension is normal. Left ventricular systolic function is normal, estimated at 60-65%. There is no increased left ventricular wall thickness. The left ventricular diastolic function is grade I diastolic dysfunction. Right Ventricle Right ventricular chamber dimension is normal. Right ventricular systolic function is normal. Left Atria Left atrial chamber dimension is normal. Right Atria Right atrial chamber dimension is normal. Atrial Septum Intact interatrial septum visualized by color flow imaging. Aortic Valve The aortic valve is not well visualized. There is no aortic valve stenosis. There is no aortic valve regurgitation. Pulmonic Valve The pulmonic valve is not well visualized. Mitral Valve The mitral valve has normal leaflets. There is no mitral valve stenosis. There is trace mitral valve regurgitation. Tricuspid Valve The tricuspid valve leaflets are normal. There is no significant tricuspid valve stenosis. There is mild tricuspid valve regurgitation. Pericardium/Pleural There is no pericardial effusion. Inferior Vena Cava Normal inferior vena cava with >50% collapse upon inspiration consistent with normal right atrial pressure. Aorta The aortic root size at the sinus of Valsalva is normal. Left Ventricular Outflow Tract Name Value Normal LVOT 2D LVOT Diameter 2.1 cm LVOT Doppler LVOT Peak Gradient 3 mmHg LVOT Mean Gradient 1 mmHg LVOT VTI 17 cm LVOT VTI/AV VTI Ratio 1.1 LVOT Stroke Volume 61 ml LVOT CO 11.3 l/min LVOT CI 6.3 l/min/m2 Pulmonic Valve Name Value Normal PV Doppler
[2022-06-24 02:02] LABS: Immature Reticulocyte Fraction 17.9 % (3.0-15.9); Reticulocyte Hemoglobin Conten 39.4 pg (28.2-35.7); Reticulocyte Percent 1.93 % (0.7-4.3); Reticulocytes Absolute 0.06 B/L (32.2-175.7)
[2022-06-24 02:14] LABS: Anion Gap 9 mmol/L (8-16); Blood Urea Nitrogen 13 mg/dL (9-20); Calcium 9.1 mg/dL (8.4-10.2); Carbon Dioxide 21 mmol/L (22-30); Chloride 105 mmol/L (98-107); Creatine Kinase 316 U/L (55-170); Estimated CRCL calculation 69 ml/min; Estimated Glomerular Filt Rate > 60; Glucose 103 mg/dL (65-110); Magnesium 1.3 mg/dL (1.6-2.3); Potassium 4.1 mmol/L (3.4-5.0); Sodium 135 mmol/L (137-145)
[2022-06-24 02:23] LABS: Iron 43 ug/dL (49-181)
[2022-06-24 02:32] LABS: Percent Iron Saturation 18 % (20-50)
[2022-06-24 02:55] LABS: Thyroid Stimulating Hormone Reflex 0.394 uIU/mL (0.465-4.68)
[2022-06-24 03:01] LABS: Hepatitis B Surface Antigen Negative (Negative)
[2022-06-24 03:07] LABS: HAV RESULT Negative (Negative); Hepatitis B Core IgM Result Negative (Negative)
[2022-06-24 03:16] LABS: Hepatitis C Virus Antibody Negative (Negative)
[2022-06-24 03:20] LABS: Folic Acid 3.8 ng/mL (2.76->20)
[2022-06-24 03:33] LABS: Free T4 Free Thyroxine Reflex 1.26 ng/dL (0.78-2.19)
[2022-06-24 04:15] LABS: Total Triiodothyronine (T3) 1.23 NG/ML (0.97-1.69)
--- NOTE | 2022-06-24 10:56 | PM.IMPN ---
Progress Note: A&P Assessment and Plan (1) Syncope: Code(s): R55 - Syncope and collapse Status: Acute Assessment and Plan: No more episodes since being in the hospital. Vitals have been stable. Workup unrevealing thus far. Workup is still pending. may be from dehydration and hypokalemia. (2) Acute kidney injury: Code(s): N17.9 - Acute kidney failure, unspecified Status: Acute Assessment and Plan: Resolved (3) Hypokalemia: Code(s): E87.6 - Hypokalemia Status: Acute Assessment and Plan: Resolved (4) Transaminitis: Code(s): R74.01 - Elevation of levels of liver transaminase levels Status: Acute Assessment and Plan: monitor will need to be followed up with as an outpatient. (5) Hypertension: Code(s): I10 - Essential (primary) hypertension Status: Acute (6) Chronic anticoagulation: Code(s): Z79.01 - lobsterman (current) use of anticoagulants Status: Acute (7) Nicotine dependence: Code(s): F17.200 - Nicotine dependence, unspecified, uncomplicated Status: Acute Subjective Date/time seen: 06/24/22 10:56 no new complaints. No seizure-like activity. No syncope. Exam Const: Other: Well-developed, nontoxic-appearing male sitting up in bed. Weight: 65.2 kilograms. BMI: 19.5. HENMT: Other: Normocephalic, atraumatic. Nares patent bilaterally. Oral mucosa is tacky. Eyes: Other: Pupils are reactive. Extraocular motions intact. Sclerae anicteric. Conjunctiva mildly injected. Neck: Other: Supple. No obvious carotid bruits. Resp: Other: Respirations are nonlabored. Lungs are clear to auscultation bilaterally. Cardio: Other: Regular rate rhythm with normal S1-S2. GI: Other: Abdomen is soft, flat, nontender, and nondistended with positive bowel sounds. Skin: Other: Warm and dry. Neuro: Other: Alert and oriented x4. Cranial nerves 2-12 grossly intact. No gross focal deficits. Extrem: Other: No cyanosis, clubbing, or edema. Peripheral pulses intact. Psych: Other: Pleasant and cooperative. Appropriate mood and affect. Objective Data Vital Signs Vital Signs: Vital Signs - 24 hr 06/23/22 15:51 11/16/22 16:30 06/23/22 22:32 Temperature 98.2 F 97.2 F L Pulse Rate 90 84 87 Respiratory Rate 16 19 20 Blood Pressure 104/78 96/66 L 129/80 Pulse Oximetry 100 99 100 Oxygen Delivery Room Air 06/23/22 22:34 06/23/22 22:37 06/23/22 22:37 Temperature Pulse Rate 88 Respiratory Rate 18 Blood Pressure 147/90 H 136/92 H 130/80 Pulse Oximetry 98 Oxygen Delivery 06/23/22 22:37 06/24/22 00:00 06/24/22 04:00 Temperature Pulse Rate 85 78 84 Respiratory Rate 20 Blood Pressure 121/84 Pulse Oximetry 98 Oxygen Delivery 06/24/22 04:53 06/24/22 08:00 06/24/22 08:00 Temperature 98.9 F Pulse Rate 87 79 Respiratory Rate 16 Blood Pressure 122/80 Pulse Oximetry 100 Oxygen Delivery Room Air 06/24/22 08:00 06/24/22 10:15 06/24/22 10:16 Temperature Pulse Rate Respiratory Rate Blood Pressure 125/73 122/82 111/82 Pulse Oximetry Oxygen Delivery 06/23/22 22:40 Temperature 97.2 F L Pulse Rate 88 Respiratory Rate 18 Blood Pressure 136/92 H Pulse Oximetry 98 Oxygen Delivery Intake/Output Intake/Output: Intake & Output 06/21/22 06/22/22 06/23/22 06/24/22 23:59 23:59 23:59 23:59 Intake Total 1000 200 Output Total 275 Balance 1000 -75 Meds/Results Medications: Active Medications Generic Name Dose Route Start Last Admin Trade Name Freq PRN Reason Stop Dose Admin Chlordiazepoxide HCl 10 mg 06/24/22 00:48 Chlordiazepoxide (*Crx) 10 Mg Capsule PO Q8H PRN alcohol withdrawal symptoms Cyanocobalamin 1,000 mcg 06/24/22 09:00 Cyanocobalamin 1,000 Mcg Tablet PO QAM SHIRA Folic Acid 1 mg 06/24/22 09:00 Folic Acid 1 Mg Tablet PO DAILY SHIRA Sodium Chlorid
--- NOTE | 2022-06-24 11:36 | WPDNEUROLOGY ---
Neurology EEG Report General Information Date of Study: 06/24/22 TEST EEG DIAGNOSIS possible seizures CONDITION OF RECORDING Awake and drowsy EEG NUMBER [id number] CLINICAL HISTORY patient reported he was out shopping yesterday afternoon when he became dizzy and lost consciousness. Had a similar episode Damon about a year ago. EEG DESCRIPTION Basic resting occipital frequency consists of low to medium voltage 8 to 10 hertz per 2nd alpha admixed with small amount of low-voltage 15 to 18 hertz per 2nd beta. Low-voltage beta activity seen diffusely during drowsiness. Hyperventilation not done. Photic stimulation not done. Non paroxysmal. Nonfocal. Nonlateralizing. IMPRESSION Normal record.If the diagnosis of localization related epilepsy is being considered sleep-deprived EEG recommended.
[2022-06-24] MEDS: THIAMINE HCL 100 MG TABLET PO (12:32)
[2022-06-24] MEDS: THERAPEUTIC MULTIVITAMINS/MINERALS TAB (*BKC) 1 TABLET PO (12:32)
[2022-06-24] MEDS: SODIUM CHLORIDE 0.9% IV 1,000 ML 125 ML IV CONT ×2 (12:32→21:35)
[2022-06-24] MEDS: CYANOCOBALAMIN 1,000 MCG TABLET 1000 MCG PO (12:32)
[2022-06-24] MEDS: FOLIC ACID 1 MG TABLET PO (12:32)
[2022-06-24] MEDS: PANTOPRAZOLE 40 MG TABLET PO ×2 (12:32→17:07)
[2022-06-25] VITALS: PULSE 93
[2022-06-25 04:00] VITALS: PULSE 82
[2022-06-25] MEDS: SODIUM CHLORIDE 0.9% IV 1,000 ML 125 ML IV CONT (05:15)
[2022-06-25 05:30] VITALS: BP 121/86; PULSE 79; RESP 18; TEMP 36.8; O2SAT 100
[2022-06-25 08:00] VITALS: PULSE 81
[2022-06-25] MEDS: PANTOPRAZOLE 40 MG TABLET PO (08:58)
[2022-06-25] MEDS: THIAMINE HCL 100 MG TABLET PO (08:58)
[2022-06-25] MEDS: THERAPEUTIC MULTIVITAMINS/MINERALS TAB (*BKC) 1 TABLET PO (08:58)
[2022-06-25] MEDS: CYANOCOBALAMIN 1,000 MCG TABLET 1000 MCG PO (08:59)
[2022-06-25 12:00] VITALS: PULSE 95
--- NOTE | 2022-06-25 12:03 | PM.DS ---
DS: Admitting Diagnosis Discharge Date June 25, 2022 Admitting Diagnosis near syncope DS: Discharge Diagnosis Discharge Diagnosis (1) Syncope: Code(s): R55 - Syncope and collapse Status: Acute Assessment and Plan: No more episodes since being in the hospital. Vitals have been stable. Workup unrevealing thus far. Workup is still pending. may be from dehydration and hypokalemia. (2) Acute kidney injury: Code(s): N17.9 - Acute kidney failure, unspecified Status: Acute Assessment and Plan: Resolved (3) Hypokalemia: Code(s): E87.6 - Hypokalemia Status: Acute Assessment and Plan: Resolved (4) Transaminitis: Code(s): R74.01 - Elevation of levels of liver transaminase levels Status: Acute Assessment and Plan: monitor will need to be followed up with as an outpatient. (5) Hypertension: Code(s): I10 - Essential (primary) hypertension Status: Acute (6) Chronic anticoagulation: Code(s): Z79.01 - prison (current) use of anticoagulants Status: Acute (7) Nicotine dependence: Code(s): F17.200 - Nicotine dependence, unspecified, uncomplicated Status: Acute DS: Summary Hospital Course Hospital Course: patient admitted for near syncope. Workup unrevealing. He did have hypokalemia little dehydration this subsequently resolved with replacement. His blood pressure might be a little bit low 2 I told him to hold his amlodipine until he follows with his primary care physician. He is also going to monitor his blood pressure at home. Otherwise he can be discharged workup negative Time Spent with Patient Time attestation: Total time spent providing and/or coordinating discharge services: Exam Const: Other: Well-developed, nontoxic-appearing male sitting up in bed. Weight: 65.2 kilograms. BMI: 19.5. HENMT: Other: Normocephalic, atraumatic. Nares patent bilaterally. Oral mucosa is tacky. Eyes: Other: Pupils are reactive. Extraocular motions intact. Sclerae anicteric. Conjunctiva mildly injected. Neck: Other: Supple. No obvious carotid bruits. Resp: Other: Respirations are nonlabored. Lungs are clear to auscultation bilaterally. Cardio: Other: Regular rate rhythm with normal S1-S2. GI: Other: Abdomen is soft, flat, nontender, and nondistended with positive bowel sounds. Skin: Other: Warm and dry. Neuro: Other: Alert and oriented x4. Cranial nerves 2-12 grossly intact. No gross focal deficits. Extrem: Other: No cyanosis, clubbing, or edema. Peripheral pulses intact. Psych: Other: Pleasant and cooperative. Appropriate mood and affect. Discharge Plan Discharge Attending physician on discharge: Franck Griffith Discharging Clinician: Franck Griffith Patient Disposition: Home, Self-Care Activity: no preference Diet: as tolerated Patient Instructions: Antibiotic Form, Safe Use of Anticoagulants (GEN) Stand Alone Forms: General Discharge Information Follow-up/Referrals: [facility] [Primary Care Provider] - Discharge Medications: Continued omeprazole 40 mg Capsule,Delayed Release(Dr/Ec) 40 mg PO QAM sildenafil 100 mg Tablet 100 mg PO DAILY PRN (Reason: Erectile Dysfunction) apixaban 5 mg Tablet 2.5 mg PO BID Rx Instructions: Take 1/2 of the pill in the morning & other 1/2 around 3-4pm cyclobenzaprine 10 mg Tablet 10 mg PO TID PRN (Reason: muscle spasms) Qty: 60 0RF hydrocodone-acetaminophen 5-325 mg Tablet 1 tablet PO Q4H PRN (Reason: Pain Rated 4-6) Qty: 30 0RF cyanocobalamin (vitamin B-12) [Vitamin B-12] 1,000 mcg Tablet 1,000 mcg PO QAM Qty: 30 0RF Label Comments: Pt takes when he remembers Rx Instructions: Pt takes when he remembers Held amlodipine 10 mg Tablet 10 mg PO QAM Hold Instructions: You blood pressure has been well controlled here. I recommend
== END 2022-06-25 13:00 | disposition home or self-care (01) ==
LOC: ANHED 19:27 → ANH3MED 06-24 01:33
PROVIDERS: Physician Assistant; Admitting Provider Chiropractor; Emergency Provider Emergency Medicine; Visit Provider Chiropractor
DX: R55 Syncope and collapse (principal); N17.9 Acute kidney failure, unspecified; E87.6 Hypokalemia; R74.01 Elevation of levels of liver transaminase levels; K21.9 Gastro-esophageal reflux disease without esophagitis; I11.9 Hypertensive heart disease without heart failure; E53.0 Riboflavin deficiency; K85.90 Acute pancreatitis without necrosis or infection, unspecified; I36.1 Nonrheumatic tricuspid (valve) insufficiency; F17.210 Nicotine dependence, cigarettes, uncomplicated; F10.90 Alcohol use, unspecified, uncomplicated; F12.90 Cannabis use, unspecified, uncomplicated; Z20.822 Contact with and (suspected) exposure to COVID-19; Z86.718 Personal history of other venous thrombosis and embolism; Z79.01 Long term (current) use of anticoagulants; Z79.899 Other long term (current) drug therapy; K76.0 Fatty (change of) liver, not elsewhere classified
CPT/HCPCS: 36415; 70553; 76705; 80048; 80053; 80074; 82550; 82607; 82728; 82746; 82948; 83540; 83550; 83690; 83735; 84439; 84443; 84480; 84484; 85025; 85046; 85610; 85730; 87636; 93005; 93306; 93880; 95816; 96361; 96365; 96366; 99285; A9270; A9577; G0378; J3480; J7030

== ENCOUNTER 2023-07-28 08:33 | Inpatient (IN) | payer OTHER, SELFPAY ==
[2023-07-28] VITALS (12 sets, daily range): BP systolic 100–135; BP diastolic 65–86; PULSE 79–97; RESP 13–20; TEMP 36.4–36.7; O2SAT 100; BMI 19.4
--- NOTE | ~2023-07-28 | XR_ITS ---
EXAMINATION: XR chest 2V DATE: 07/28/2023 09:24 INDICATION: Centralized chest pain TECHNIQUE: PA and lateral views of the chest were obtained. COMPARISON: Chest CT dated 06/04/2021 FINDINGS: A couple small calcified nodules in the right middle and lower lobes consistent with old granulomatou s disease. No new airspace opacities, pulmonary edema, pleural effusion or pneumothorax. The cardiome diastinal silhouette is normal. Visualized bones and soft tissues are unremarkable. IMPRESSION: 1. No acute cardiopulmonary disease. Reviewed, dictated and finalized at location A. ION POLLS SURVEY WORKER
--- NOTE | ~2023-07-28 | US_ITS ---
EXAMINATION: US abdomen limited DATE: 07/29/2023 08:30 INDICATION: Elevated bilirubin TECHNIQUE: Multiple grayscale and Doppler ultrasound images of the abdomen were obtained. COMPARISON: CT from yesterday FINDINGS: The head and body of the pancreas are normal. The pancreatic tail is obscured by bowel gas. The liver is normal with normal echogenicity and echotexture. No surface nodularity. Normal hepatope francisco flow in the main portal vein. The gallbladder is normal with no abnormal wall thickening, pericho lecystic fluid or stones. The normal common bile duct measures 4 mm. There was no sonographic Castellon sign. IMPRESSION: 1. No sonographic correlate for the patient's symptoms. Reviewed, dictated and finalized at location B. MAN
--- NOTE | ~2023-07-28 | CT_ITS ---
EXAMINATION: CT brain wo con INDICATION: Transient alteration of awareness COMPARISON: 06/04/2021 TECHNIQUE: Standard unenhanced head CT. The dose-length product (DLP) was 681.00 mGy-cm. The mA was a djusted according to patient size. Iterative reconstruction technique was employed. FINDINGS: No intracranial hemorrhage, acute infarction, or abnormal mass lesion. The ventricles are n ormal. No abnormal mass effect or midline shift. The diamond-white matter differentiation is normal. The basal cisterns are patent. The orbits are normal. The paranasal sinuses, mastoids and calvarium are normal. IMPRESSION: 1. No acute intracranial abnormality. Reviewed, dictated and finalized at location L. ARCH DEVELOPMENT MANAGER
--- NOTE | ~2023-07-28 | CT_ITS ---
EXAMINATION: CT abdomen pelvis wo con DATE: 07/28/2023 10:34 INDICATION: Vomiting TECHNIQUE: Computed tomography (CT) of the abdomen and pelvis was performed without intravenous contr ast. The dose-length product (DLP) was 226.36 mGy-cm. Automated exposure control and iterative recons truction technique were employed. COMPARISON: None FINDINGS: Minimal dependent atelectasis is present in the lung bases. The heart size is normal. There is circumferential wall thickening of the distal esophagus. Punctate calcifications in an otherwise normal liver likely represent healed granulomatous disease. The spleen, gallbladder, and adrenal glan ds are normal. Calcifications in the head of the pancreas, consistent with chronic pancreatitis. Nono bstructing stones of the right kidney measure up to 4 mm. Nonobstructing stones of the left kidney me asure up to 2 mm. There is calcified atherosclerosis of the aorta and many of the other arteries. No pathologically enlarged abdominal or pelvic lymph nodes are identified. No free intraperitoneal gas o r evidence of bowel obstruction. The infrarenal abdominal aorta is upper limits of normal in diameter measuring 3 cm. There is mild lumbar spondylosis. IMPRESSION: 1. Circumferential wall thickening of the distal esophagus which could reflect esophagitis. 2. Findings consistent with chronic pancreatitis. 3. Infrarenal abdominal aorta at upper limits of normal in size. Reviewed, dictated and finalized at location L. EMS AUDITOR
--- NOTE | 2023-07-28 08:43 | ECG_ITS ---
Measurements Intervals [place] Rate: 91 P: 77 FL: 177 QRS: 77 QRSD: 82 T: 75 QT: 352 QTc: 434 Interpretive Statements SINUS RHYTHM NORMAL ELECTROCARDIOGRAM COMPARED TO ECG 06/23/2022 19:42:31 NO SIGNIFICANT DIFFERENCE Electronically Signed On 07-28-2023 17:43:11 CAN FEEDER by Franck Rosales M.D.
[2023-07-28 09:10] LABS: Basophils Percent Auto 0.6 % (0.2-1.2); Eosinophils Absolute Auto 0.1 K/mm3 (0-0.3); Eosinophils Percent Auto 1.6 % (0-4.4); Hematocrit 39.9 % (42.0-52.0); Hemoglobin 13.6 g/dL (14.0-18.0); Immature Granulocyte Absolute 0.03 K/mm3 (0.00-0.031); Immature Granulocyte Percent A 0.5 % (0-0.5); Lymphocytes Absolute Auto 2.45 K/mm3 (0.9-3.2); Lymphocytes Percent Auto 38.8 % (18.3-44.2); Mean Corpuscular HGB Conc 34.1 g/dl (32-36); Mean Corpuscular Hemoglobin 36.5 pg (26-34); Mean Platelet Volume 10.6 fl (7.4-10.4); Monocytes Absolute Auto 0.6 K/mm3 (0.1-0.6); Neutrophils Absolute Auto 3.1 K/mm3 (1.3-6.7); Neutrophils Percent Auto 48.5 % (45.5-73.1); Platelet Count Result 191 k/mm3 (150-375); Red Blood Count 3.73 M/mm3 (4.6-6.20); Red Cell Distribution Width 13.6 % (11.5-14.5); White Blood Count 6.3 K/mm3 (4.5-10.0)
[2023-07-28 09:20] LABS: INR 0.9; Partial Thromboplastin Time 24.6 SECONDS (22.3-36.8)
[2023-07-28 09:22] LABS: Alanine Aminotransferase 57 U/L (6-50); Albumin Level 4.5 g/dL (3.5-5.1); Alkaline Phosphatase 58 U/L (38-126); Anion Gap 16 mmol/L (8-16); Aspartate Amino Transferase 111 U/L (17-59); Bilirubin,Total 1.1 mg/dL (0.2-1.3); Blood Urea Nitrogen 18 mg/dL (9-20); Calcium 9.6 mg/dL (8.4-10.2); Carbon Dioxide 24 mmol/L (22-30); Chloride 97 mmol/L (98-107); Estimated CRCL calculation 21 ml/min; Estimated Glomerular Filt Rate 26; Glucose 118 mg/dL (65-110); Lipase 911 U/L (23-300); Potassium 3.5 mmol/L (3.4-5.0); Sodium 137 mmol/L (137-145)
[2023-07-28 09:33] LABS: Troponin I < 0.012 ng/mL (0.000-0.034)
--- NOTE | 2023-07-28 10:33 | ED.NAVMDI ---
HPI - Nausea/Vomiting/Diarrhea General Chief complaint: Nausea/Vomiting/Diarrhea <BRIANNA Naidu Last Filed: 07/28/23 18:22> Stated complaint: NAUSEA, SYN VS SEIZ <Annelise Calvin PA-C - Last Filed: 07/28/23 18:22> Time Seen by Provider: 07/28/23 08:56 <BRIANNA Naidu Last Filed: 07/28/23 18:22> Source: patient and family <BRIANNA Naidu Last Filed: 07/28/23 18:22> Mode of arrival: EMS <BRIANNA Naidu Last Filed: 07/28/23 18:22> Limitations: no limitations <BRIANNA Naidu Last Filed: 07/28/23 18:22> History of Present Illness HPI Narrative: Patient is a 63-year-old male who presents to the ED via EMS with report of nausea, vomiting, syncope. patient reports he has been vomiting since around 3:00 a.m. this morning. Numerous episodes of emesis. Unable to keep down any food or drink. Denies hematemesis. He does still feel nauseous currently and c/o acid reflux burning in his chest. Denies bad food exposure, sick contacts, family member with similar symptoms, abdominal pain, diarrhea. at bedside reports patient appeared very dehydrated this morning and had 2 witnessed syncopal episodes. She noted he had tremors of his extremities at that time. EMS was then contacted. She does note patient has had similar syncopal episodes in the past related to pain and dehydration. Denies previous history of seizures. Patient regained consciousness quickly and there was no postictal period reported. No bowel or bladder incontinence. Patient states he otherwise has felt weak, but denies cough or cold symptoms, known fevers. <BRIANNA Naidu Last Filed: 07/28/23 18:22> Related Data Home medications: Home Medications Medication Instructions Recorded Confirmed amlodipine 10 mg tablet 10 mg PO QAM 06/04/21 07/28/23 apixaban 5 mg tablet 2.5 mg PO BID 06/04/21 07/28/23 omeprazole 40 mg capsule,delayed 40 mg PO QAM 06/04/21 07/28/23 release sildenafil 100 mg tablet 100 mg PO DAILY PRN Erectile 06/04/21 07/28/23 Dysfunction <Annelise Calvin PA-C - Last Filed: 07/28/23 18:22> Allergies/Adverse reactions: Allergies Allergy/AdvReac Type Severity Reaction Status Date / Time No Known Allergies Allergy Verified 06/23/22 15:56 <Annelise Calvin PA-C - Last Filed: 07/28/23 18:22> Review of Systems Review of Systems: CONSTITUTIONAL: Denies fever, chills, or sweats. ENT: Denies rhinorrhea, congestion, sore throat. CARDIOVASCULAR: Denies chest pain. RESPIRATORY: Denies cough or dyspnea. GASTROINTESTINAL: See HPI. MUSCULOSKELETAL: Denies back pain, extremity pain, myalgia. NEUROLOGIC: See HPI. <Annelise Calvin PA-C - Last Filed: 07/28/23 18:22> All systems reviewed & are unremarkable except as noted in HPI and below <Annelise Calvin PA-C - Last Filed: 07/28/23 18:22> [facility] Past Medical History Medical History: Medical History Arthritis Chronic anticoagulation Closed left femoral fracture Deep venous thrombosis Gastroesophageal reflux disease Hypertension Nicotine dependence Pancreatitis Vitamin B12 deficiency <Annelise Calvin PA-C - Last Filed: 07/28/23 18:22> Surgical History Surgical History: Surgical History History of bilateral knee arthroplasty <Annelise Calvin PA-C - Last Filed: 07/28/23 18:22> Family History Family History: Family History Mother Hypertension Sibling Hypertension Other Cancer <Annelise Calvin PA-C - Last Filed: 07/28/23 18:22> Social History Social History: Social History Social History: Surrogate decision maker: Kavita Evans,
[2023-07-28] MEDS: ONDANSETRON INJ 4 MG/2 ML VIAL IV PUSH (10:47)
[2023-07-28] MEDS: SODIUM CHLORIDE 0.9% IV 1,000 ML 999 ML IV CONT ×2 (10:47→11:17)
[2023-07-28] MEDS: FAMOTIDINE 20 MG/2 ML VIAL IV PUSH (10:48)
[2023-07-28 10:55] LABS: Magnesium 1.5 mg/dL (1.6-2.3)
[2023-07-28] MEDS: MAGNESIUM SULF 2 GM/WATER 50ML 2 GM/50 ML BAG IVPB (11:17)
[2023-07-28 11:29] LABS: Influenza A QL RT-PCR Negative (Negative); Influenza B QL RT-PCR Negative (Negative); RSV RNA, RT-PCR Negative (Negative); SARS-CoV-2 RNA PCR Negative (Negative)
--- NOTE | 2023-07-28 11:58 | ECG_ITS ---
Measurements Intervals [place] Rate: 82 P: 70 [place]: 171 QRS: 73 QRSD: 85 T: 66 QT: 387 QTc: 452 Interpretive Statements SINUS RHYTHM NORMAL ELECTROCARDIOGRAM COMPARED TO ECG 07/28/2023 08:41:50 NO SIGNIFICANT CHANGES Electronically Signed On 07-28-2023 17:58:10 CHICKEN CLEANER by Franck Rosales M.D.
[2023-07-28 12:28] LABS: Troponin I < 0.012 ng/mL (0.000-0.034)
[2023-07-28] MEDS: BELLADONNA ALK/PHENOB ELIX 10 ML, MAG HYDROX/ALUMINUM HYD/SIMETH 30 ML, LIDOCAINE HCL 2... PO (14:19)
[2023-07-28 15:45] LABS: Troponin I < 0.012 ng/mL (0.000-0.034)
--- NOTE | 2023-07-28 16:43 | PC.NURSE ---
This patient, Ty Evans, was admitted to [facility] Surg Room 331-02. Patient/family oriented to hospital policies and general routines including ID bracelet, bed and alarms, visiting hours, pain management, procedures, bathroom and other care routines, personal items, smoking policy, room service/diet, and visiting hours. Information on how to activate the Rapid Response Team has been discussed. Patient/Family are encouraged to report perceived risks to care and to ask questions if they do not understand what they are told or what they should do.
[2023-07-28] MEDS: SODIUM CHLORIDE 0.9% IV 1,000 ML 100 ML IV CONT (16:50)
--- NOTE | 2023-07-28 20:42 | PM.IMHP ---
H&P: HPI History of Present Illness Date/Time: 07/28/23 20:42 Chief Complaint: N/V, Syncope Narrative: 63 y/o M presented here with N/V and syncope with PMH of chronic pancreatitis, DVT, GERD, B12 deficiency, HTN, and daily alcohol consumption. Patient presented here today with nausea and vomiting that acutely started overnight as well as a syncopal episode during emesis episode. Patient reports that he has been feeling unwell since Tuesday with reduced appetite and p.o. intake. Denies any current chills, body aches, diarrhea, or URI symptoms. Reports he has had 3 syncopal episodes in the last few months. States to were in the restroom and 1 was while he was at the store. No palpitations or chest pain. last bowel movement was yesterday, normal color and consistency. Does not report any current abdominal pain. Currently a daily drinker, 4-6 beers per day. Not currently interested in cessation. ED workup revealed RODO with creatinine of 3.0, stable anemia, mild hypomagnesemia, LFTs elevated but at baseline, negative trops x2, lipase 911, and viral PCR negative. Head CT was unremarkable. CT abdomen pelvis showed thickening of distal esophagus which could reflect esophagitis, chronic pancreatitis, infrarenal abdominal aorta at upper limits of normal in size. CXR showed no acute cardiopulmonary disease. Review of Systems Review of Systems: All systems reviewed & are unremarkable except as noted in HPI and below PMFSH Past Medical History Medical History Alcohol use Anemia Arthritis Chronic anticoagulation Closed left femoral fracture Deep venous thrombosis Gastroesophageal reflux disease Hypertension Nicotine dependence Pancreatitis Vitamin B12 deficiency Surgical History Surgical History History of bilateral knee arthroplasty Family History Family History Mother Hypertension Sibling Hypertension Other Cancer Social History Social History Social History: Surrogate decision maker: Kavita Evans, . Code status: Full code. Smoking packs per day: 1 Smoking cigarettes per day: 20.0 Years smoked: 45 Smoking pack-years: 45.00 Smoking status: Current every day smoker Tobacco type: cigarettes Second hand tobacco smoke exposure: Yes Alcohol intake: current Drinks per week: 15 Substance use: current Substance use type: marijuana Do You Feel Safe in your Home?: No Lack of Transportation: No Lack of Food: Never True Current Housing: I Have Housing Concerned About Future Housing: No Difficulty Paying Gas/Electric Bills: No Difficulty Paying for Meds: No Currently Unemployed: No Education: High School Diploma/GED Difficulty w/ Childcare or Family Care: No Living arrangements: with family Additional living arrangements comments: The patient lives with his in [place]. 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 Spiritual care concerns: No Meds Home Medications and Allergies Home Medications Medication Instructions Recorded Confirmed Type amlodipine 10 mg tablet 10 mg PO QAM 06/04/21 07/28/23 History apixaban 5 mg tablet 2.5 mg PO BID 06/04/21 07/28/23 History omeprazole 40 mg capsule,delayed 40 mg PO QAM 06/04/21 07/28/23 History release sildenafil 100 mg tablet 100 mg PO DAILY PRN Erectile 06/04/21 07/28/23 History Dysfunction cyanocobalamin (vitamin B-12) 1,000 mcg PO QAM #30 tabs 06/06/21 07/28/23 Rx 1,000 mcg tablet (Vitamin B-12) Allergies Allergy/AdvReac Type Severity Reaction Status Date / Time No Known Allergies Allergy Verified 06/23/22 15:56 Vital Signs Vital Signs - 24 hr 07/28/23 08:33 07/28/23 11:00 07/28/23 11:18 Temperature 97.6 F 98.0 F Pulse
[2023-07-28] MEDS: THIAMINE HCL INJ 100 MG, FOLIC ACID INJ 1 MG, MAGNESIUM SULFATE INJ 1 GM in LACTATED RI... IV CONT (21:23)
[2023-07-28] MEDS: ACETAMINOPHEN 325 MG TABLET 650 MG PO (21:25)
[2023-07-29 04:00] VITALS: PULSE 73
[2023-07-29 06:00] VITALS: BP 132/80; PULSE 67; RESP 18; TEMP 36.2; O2SAT 100
[2023-07-29 06:22] LABS: Glucose Point of Care 90 mg/dl (65-105)
[2023-07-29 06:32] LABS: Basophils Percent Auto 0.7 % (0.2-1.2); Eosinophils Absolute Auto 0.2 K/mm3 (0-0.3); Hematocrit 33.7 % (42.0-52.0); Hemoglobin 11.5 g/dL (14.0-18.0); Immature Granulocyte Absolute 0.01 K/mm3 (0.00-0.031); Immature Granulocyte Percent A 0.2 % (0-0.5); Lymphocytes Absolute Auto 1.73 K/mm3 (0.9-3.2); Lymphocytes Percent Auto 38.1 % (18.3-44.2); Mean Corpuscular HGB Conc 34.1 g/dl (32-36); Mean Corpuscular Hemoglobin 36.5 pg (26-34); Mean Platelet Volume 10.4 fl (7.4-10.4); Monocytes Absolute Auto 0.4 K/mm3 (0.1-0.6); Monocytes Percent Auto 9.5 % (2.6-8.5); Neutrophils Absolute Auto 2.2 K/mm3 (1.3-6.7); Neutrophils Percent Auto 47.5 % (45.5-73.1); Platelet Count Result 138 k/mm3 (150-375); Red Blood Count 3.15 M/mm3 (4.6-6.20); Red Cell Distribution Width 13.2 % (11.5-14.5); White Blood Count 4.5 K/mm3 (4.5-10.0)
[2023-07-29 06:51] LABS: Alanine Aminotransferase 41 U/L (6-50); Albumin Level 3.5 g/dL (3.5-5.1); Alkaline Phosphatase 50 U/L (38-126); Anion Gap 5 mmol/L (8-16); Aspartate Amino Transferase 63 U/L (17-59); Bilirubin,Total 1.9 mg/dL (0.2-1.3); Blood Urea Nitrogen 11 mg/dL (9-20); Calcium 8.5 mg/dL (8.4-10.2); Carbon Dioxide 26 mmol/L (22-30); Chloride 101 mmol/L (98-107); Estimated CRCL calculation 68 ml/min; Estimated Glomerular Filt Rate > 60; Glucose 91 mg/dL (65-110); Lipase 246 U/L (23-300); Magnesium 1.7 mg/dL (1.6-2.3); Potassium 2.7 mmol/L (3.4-5.0); Sodium 132 mmol/L (137-145)
[2023-07-29 07:28] LABS: Anisocytosis 1+ (NORMAL); Platelet Estimate Decreased (Adequate); Schistocytes None Seen (NORMAL); Target Cells 1+ (NORMAL)
[2023-07-29 08:55] VITALS: PULSE 74
[2023-07-29] MEDS: amLODIPine BESYLATE 5 MG TABLET 10 MG PO (08:55)
[2023-07-29] MEDS: PANTOPRAZOLE 40 MG TABLET PO (08:55)
[2023-07-29] MEDS: THIAMINE HCL 200 MG/2 ML VIAL 100 MG IV PUSH (08:56)
[2023-07-29] MEDS: FOLIC ACID 1 MG TABLET PO (08:58)
[2023-07-29] MEDS: CYANOCOBALAMIN 1,000 MCG TABLET 1000 MCG PO (08:58)
[2023-07-29] MEDS: APIXABAN 2.5 MG TABLET PO (08:58)
[2023-07-29] MEDS: POTASSIUM CHLORIDE 20 MEQ ER TABLET 40 MEQ PO (08:58)
[2023-07-29] MEDS: POTASSIUM CHLORIDE INJ 40 MEQ in SODIUM CHLORIDE 0.9% IV 500 ML 130 MEQ IVPB (08:59)
[2023-07-29 11:50] LABS: Glucose Point of Care 88 mg/dl (65-105)
[2023-07-29 12:00] VITALS: PULSE 78
[2023-07-29 13:18] LABS: Potassium 3.2 mmol/L (3.4-5.0)
[2023-07-29 14:00] VITALS: BP 123/82; PULSE 75; RESP 20; TEMP 37.1; O2SAT 100
[2023-07-29 16:00] VITALS: PULSE 86
--- NOTE | 2023-07-29 16:26 | PM.DS ---
DS: Admitting Diagnosis Discharge Date 07/28/23 Admitting Diagnosis nausea, vomiting DS: Discharge Diagnosis Discharge Diagnosis (1) Syncope: Qualifiers: Syncope type: unspecified Qualified Code(s): R55 - Syncope and collapse Code(s): R55 - Syncope and collapse Status: Acute (2) Acute kidney injury: Code(s): N17.9 - Acute kidney failure, unspecified Status: Acute (3) Chronic pancreatitis: Qualifiers: Pancreatitis type: unspecified pancreatitis type Qualified Code(s): K86.1 - Other chronic pancreatitis Code(s): K86.1 - Other chronic pancreatitis Status: Acute Assessment and Plan: CT showed chronic pancreatitis. Patient confirms history, states that is secondary to alcohol use, continues to use daily without interest in cessation. Lipase 911. Continue liquid diet, antiemetics, p.r.n. pain medication. Add A1C to a.m. labs. Continue fluid resuscitation with banana bag. (4) Alcohol use: Code(s): Z78.9 - Other specified health status Status: Acute (5) Hypomagnesemia: Code(s): E83.42 - Hypomagnesemia Status: Acute (6) Anemia: Code(s): D64.9 - Anemia, unspecified Status: Acute DS: Summary Hospital Course Hospital Course: 63-year-old male with a past medical history of chronic pancreatitis, DVT, GERD, B12 deficiency, hypertension daily alcohol consumption the present to the ED due to nausea and vomiting. Patient also states that over the past 3 months he has had 3 syncopal episodes. Workup in the ED revealed an RODO with creatinine of 3, hypomagnesemia, LFTs elevated but at baseline, tropes x2 negative, elevated lipase of 111 and viral PCR negative. Head CT unremarkable, CT abdomen pelvis showing distal esophagus thickening and possible esophagitis, chronic pancreatitis. Chest x-ray no acute cardiopulmonary process. He was started on IV fluids. Repeat labs showed creatinine at 0.9 and a lipase of 246. Patient states that his nausea vomiting are much improved and he believes he is stable enough to be discharged. He did have a low potassium and this was replenished. Repeat labs show potassium within normal limits. Magnesium was replenished. Recommended patient follow-up with his PCP for repeat electrolytes studies. His labs and vital signs are stable he is medically clear for discharge at this time. Time Spent with Patient Time attestation: Total time spent providing and/or coordinating discharge services: Exam Narrative: GENERAL: Comfortable, no acute distress HENMT: moist mucous membranes EYES: EOM intact b/l NECK: no lymphadenopathy RESPIRATORY: clear to auscultation CARDIO: RRR GI: soft, nontender, bowel sounds present SKIN: no rashes EXTREMITIES: no edema, redness or tenderness DS: Data Data Completed and Pending Labs on day of discharge: Labs from last 24 hours 07/29/23 07/29/23 07/29/23 13:04 11:46 06:15 WBC 4.5 RBC 3.15 L Hgb 11.5 L Hct 33.7 L MCV 107.0 H MCH 36.5 H MCHC 34.1 RDW 13.2 Plt Count 138 L MPV 10.4 Immature Gran % (Auto) 0.2 Neut % (Auto) 47.5 Lymph % (Auto) 38.1 [place] % (Auto) 9.5 H Eos % (Auto) 4.0 Baso % (Auto) 0.7 Lymph # (Auto) 1.73 [place] # (Auto) 0.4 Eos # (Auto) 0.2 Baso # (Auto) 0.0 Abs Immat Gran (auto) 0.01 Absolute Neuts (auto) 2.2 Absolute Nucleated RBC 0.0 Nucleated RBC % 0.0 Platelet Estimate Decreased Anisocytosis 1+ Target Cells 1+ Schistocytes None seen Sodium 132 L Potassium 3.2 L 2.7 L* Chloride 101 Carbon Dioxide 26 Anion Gap 5 L BUN 11 D Creatinine 0.90 Estim Creat Clear Calc 68 Estimated GFR > 60 Glucose 91 POC Capillary Glucose 88 90 Calcium 8.5 Magnesium 1.7 Total Bilirubin 1.9 H AST 63 H ALT 41 Alkaline Phosphatase 50 Total Protein 7.0 Albumin 3.5 Lipase 246 D
[2023-07-29 16:38] LABS: Potassium 3.4 mmol/L (3.4-5.0)
== END 2023-07-29 17:09 | disposition home or self-care (01) | DRG 683 ==
LOC: ANHED 09:33 → ANH3MEDSUR 14:36
PROVIDERS: Student in an Organized Health Care Education/Training Program; Admitting Provider Internal Medicine; Emergency Provider Physician Assistant; Visit Provider Internal Medicine Critical Care Medicine
DX: N17.9 Acute kidney failure, unspecified (principal); K86.0 Alcohol-induced chronic pancreatitis; E86.1 Hypovolemia; R55 Syncope and collapse; K20.90 Esophagitis, unspecified without bleeding; E83.42 Hypomagnesemia; D64.9 Anemia, unspecified; K21.9 Gastro-esophageal reflux disease without esophagitis; E53.8 Deficiency of other specified B group vitamins; I10 Essential (primary) hypertension; F10.90 Alcohol use, unspecified, uncomplicated; M19.90 Unspecified osteoarthritis, unspecified site; Z96.653 Presence of artificial knee joint, bilateral; Z20.822 Contact with and (suspected) exposure to COVID-19; F17.210 Nicotine dependence, cigarettes, uncomplicated; Z86.718 Personal history of other venous thrombosis and embolism; Z79.01 Long term (current) use of anticoagulants
CPT/HCPCS: 36415; 70450; 71046; 74176; 76705; 80053; 82948; 83690; 83735; 84132; 84484; 85025; 85610; 85730; 87637; 93005; 96361; 96365; 96375; 99285; A9270; G0378; J2405; J3411; J3475; J3480; J7030; J7040; J7120

== ENCOUNTER 2024-02-01 23:35 | Observation (INO) | payer OTHER, SELFPAY ==
--- NOTE | ~2024-02-01 | XR_ITS ---
Portable chest x-ray Comparison: 07/28/2023 Clinical History: Syncope Findings: Lungs are clear, without focal consolidation or pleural effusion. Cardiomediastinal silho uette is stable. Bones and soft tissues are unremarkable. Impression: Normal chest. Reviewed, dictated and finalized at location . Impression: Normal chest.
--- NOTE | ~2024-02-01 | CT_ITS ---
Noncontrast CT scan of the cervical spine Technique: Multiple contiguous axial [address] images of the cervical spine were obtained and rec onstructed in 2D sagittal and coronal planes on the acquisition scanner. Dose reduction technique was used on this scan by utilizing automated exposure control, adjustment of the mA and/or kV according to patient size. The dose-length product (DLP) was 377.90 mGy-cm. Clinical History: Pain Findings: No acute fracture seen. There is 4 mm anterolisthesis of C4 over C5. There is minimal grade 1 retrolisthesis of C5 over C6. There is severe degenerative disc narrowing at C2-C3, C3-C4, C5-C6, and C6-C7. Probable mild canal stenosis at C2-C3 and mild bilateral neural foraminal narrowing. There is bilateral neural foraminal narrowing at C3-C4, severe left-sided facet arthropathy. There is prob able mild bilateral neural foraminal narrowing at C4-C5, with bilateral facet arthropathy, right wors e than left. There is bilateral neural foraminal narrowing at C5-C6 and C6-C7. No prevertebral soft t issue swelling. Impression: No acute fracture. 4 mm anterolisthesis of C4 over C5. Minimal grade 1 retrolisthesis of C5 over C6. Advanced degenerative spondylosis, as above. Reviewed, dictated and finalized at [facility]. Impression: No acute fracture. 4 mm anterolisthesis of C4 over C5. Minimal grade 1 retrolisthesis of C5 over C6. Advanced degenerative spondylosis, as above.
--- NOTE | ~2024-02-01 | CT_ITS ---
Non-contrast Head CT History: Head injury COMPARISON: 07/28/2023 Technique: Axial non-contrast imaging of the brain was performed. Dose reduction technique was used on this scan by utilizing automated exposure control and iterative reconstruction technique. The dose -length product (DLP) was 605.33 mGy-cm. Findings: There is no evidence of intracranial hemorrhage, mass lesion, or acute infarct. Brain par enchyma appears normal. The ventricles and subarachnoid spaces are normal in size. The calvarium ap pears normal. The visualized paranasal sinuses and mastoid air cells are clear. Impression: No significant abnormality seen. Reviewed, dictated and finalized at location . Impression: No significant abnormality seen.
[2024-02-01 23:32] VITALS: BP 96/74; PULSE 76; RESP 15; O2SAT 100
[2024-02-01 23:42] VITALS: BP 80/60; PULSE 87
[2024-02-01 23:43] VITALS: BP 100/66; PULSE 83
[2024-02-01 23:44] VITALS: BP 118/96; PULSE 106
[2024-02-01 23:44] LABS: Basophils Absolute Auto 0.1 K/mm3 (0.0-0.1); Basophils Percent Auto 0.9 % (0.2-1.2); Eosinophils Absolute Auto 0.1 K/mm3 (0-0.3); Eosinophils Percent Auto 1.8 % (0-4.4); Hematocrit 35.9 % (42.0-52.0); Hemoglobin 12.5 g/dL (14.0-18.0); Immature Granulocyte Absolute 0.02 K/mm3 (0.00-0.031); Immature Granulocyte Percent A 0.4 % (0-0.5); Lymphocytes Absolute Auto 2.16 K/mm3 (0.9-3.2); Lymphocytes Percent Auto 39.9 % (18.3-44.2); Mean Corpuscular HGB Conc 34.8 g/dl (32-36); Mean Corpuscular Hemoglobin 37.3 pg (26-34); Mean Corpuscular Volume 107.2 fl (80-100); Mean Platelet Volume 9.9 fl (7.4-10.4); Monocytes Absolute Auto 0.6 K/mm3 (0.1-0.6); Monocytes Percent Auto 10.9 % (2.6-8.5); Neutrophils Absolute Auto 2.5 K/mm3 (1.3-6.7); Neutrophils Percent Auto 46.1 % (45.5-73.1); Platelet Count Result 226 k/mm3 (150-375); Red Blood Count 3.35 M/mm3 (4.6-6.20); Red Cell Distribution Width 13.5 % (11.5-14.5); White Blood Count 5.4 K/mm3 (4.5-10.0)
[2024-02-01] MEDS: SODIUM CHLORIDE 0.9% IV 1,000 ML 999 ML IV CONT (23:53)
[2024-02-02] VITALS (13 sets, daily range): BP systolic 100–137; BP diastolic 60–79; PULSE 77–111; RESP 16–20; TEMP 36.3–36.7; O2SAT 96–100; BMI 21.1
--- NOTE | 2024-02-02 | ECHO_ITS ---
Patient Info Name: Ty Evans Age: 64 years : 1960 Gender: Male Ht: 72 in Wt: 155 lbs BSA: 1.88 m2 HR: 72 bpm BP: 137 / 74 mmHg Heart Rhythm: Sinus Rhythm Technical Quality: Fair Exam Date: 02/02/2024 4:14 PM Exam Location: Echo Lab Patient Status: Inpatient Admit Date: 02/02/2024 Staff Ordering Physician: Kristal Limon APRN Services Delivery Driver: Aileen Slaughter RDCS Attending Provider: Kristal Limon APRN Referring Physician: Braxton DURANT; Exam Type: CA echo doppler color flow Study Info Indications R55 - Syncope and collapse Complete two-dimensional, color flow and Doppler transthoracic echocardiogram is performed. Summary 1. Complete two-dimensional, color flow and Doppler transthoracic echocardiogram is performed. 2. Normal appearing left and right ventricular size and systolic function. 3. Trivial mitral and tricuspid valve regurgitation. 4. Compared with echocardiogram from June of 2022, no difference. Left Ventricle Left ventricular chamber dimension is normal. Left ventricular systolic function is normal, estimated at 55-60%. The left ventricular diastolic function is normal. Right Ventricle Right ventricular chamber dimension is normal. Left Atria Left atrial chamber dimension is normal. Right Atria Right atrial chamber dimension is normal. Aortic Valve The aortic valve is normal. Pulmonic Valve The pulmonic valve is normal. Mitral Valve The mitral valve has normal leaflets. There is trace mitral valve regurgitation. Tricuspid Valve The tricuspid valve leaflets are normal. There is trace tricuspid valve regurgitation. Pericardium/Pleural The pericardium appears normal. Aorta The aortic root size at the sinus of Valsalva is normal. Left Ventricular Outflow Tract Name Value Normal LVOT 2D LVOT Diameter 2.0 cm LVOT Doppler LVOT Peak Gradient 4 mmHg LVOT Mean Gradient 1 mmHg LVOT VTI 20 cm LVOT VTI/AV VTI Ratio 1.0 LVOT Stroke Volume 61 ml LVOT CO 4.0 l/min LVOT CI 2.1 l/min/m2 Pulmonic Valve Name Value Normal RVOT Doppler RVOT Peak Gradient 1 mmHg PV Doppler PV Peak Gradient 1 mmHg Mitral Valve Name Value Normal MV Doppler MV Decel [place] 516 cm/s2 MV PHT 47 ms MV Area (PHT) 4.7 cm2 4.0-5.0 MV Diastolic Function
--- NOTE | 2024-02-02 | ECG_ITS ---
Test Date: 2024-02-01 23:36:52 Measurements Intervals [place] Rate: 78 P: 63 MO: 196 QRS: 60 QRSD: 91 T: 68 QT: 365 QTc: 416 Interpretive Statements SINUS RHYTHM EARLY REPOLARIZATION [ST ELEVATION WITH NORMALLY INFLECTED T WAVE] No previous ECG available for comparison Electronically Signed On 02-02-2024 13:34:10 CDT by Rsoanne Gross M.D.
[2024-02-02 00:05] LABS: Platelet Estimate Adequate (Adequate)
[2024-02-02 00:06] LABS: Macrocytosis 1+ (NORMAL); Schistocytes None Seen
[2024-02-02 00:12] LABS: Alanine Aminotransferase 70 U/L (6-50); Albumin Level 4.7 g/dL (3.5-5.1); Alkaline Phosphatase 44 U/L (38-126); Anion Gap 15 mmol/L (4-12); Aspartate Amino Transferase 89 U/L (17-59); Bilirubin,Total 1.4 mg/dL (0.2-1.3); Blood Urea Nitrogen 14 mg/dL (9-20); Calcium 9.2 mg/dL (8.4-10.2); Carbon Dioxide 19 mmol/L (22-30); Chloride 104 mmol/L (98-107); Estimated CRCL calculation 35 ml/min; Estimated Glomerular Filt Rate 43; Glucose 114 mg/dL (65-110); Potassium 3.6 mmol/L (3.4-5.0); Sodium 138 mmol/L (137-145)
[2024-02-02 00:33] LABS: Magnesium 1.5 mg/dL (1.6-2.3)
[2024-02-02 00:35] LABS: Lactic Acid Reflex 4.2 mmol/L (0.7-2.0)
[2024-02-02 00:36] LABS: Ethanol 255 mg/dL (<10)
[2024-02-02 00:40] LABS: Troponin I < 0.012 ng/mL (0.000-0.034)
[2024-02-02] MEDS: THIAMINE 500 MG/NS 100 ML 500 MG/100 ML BAG 200 MG IVPB (00:58)
--- NOTE | 2024-02-02 01:15 | ED.GENADULT ---
HPI - General Adult General Chief complaint: Syncope Stated complaint: SYNCOPAL EPISODE, JUNIOR, HYPOTENSIVE Time Seen by Provider: 02/01/24 23:38 History of Present Illness HPI narrative: Patient 64-year-old gentleman who presents emergency department with chief complaint of syncopal episode. Patient has prior history of alcohol abuse and also history of syncopal episodes after he proceeds to drink a fair amount the patient reports that he had some shots of rum this evening passed out reports that he has a headache and reports that he is on blood thinners. Related Data Home Medications Medication Instructions Recorded Confirmed amlodipine 10 mg tablet 10 mg PO QAM 06/04/21 07/28/23 apixaban 5 mg tablet 2.5 mg PO BID 06/04/21 07/28/23 omeprazole 40 mg capsule,delayed 40 mg PO QAM 06/04/21 07/28/23 release sildenafil 100 mg tablet 100 mg PO DAILY PRN Erectile 06/04/21 07/28/23 Dysfunction Allergies Allergy/AdvReac Type Severity Reaction Status Date / Time No Known Allergies Allergy Verified 02/01/24 23:36 Review of Systems Review of Systems: A 10 system review of systems was completed on the patient and is negative except for what is stated in the HPI. Nursing and ancillary documentation was reviewed. [facility] Past Medical History Medical History Alcohol use Anemia Arthritis Chronic anticoagulation Closed left femoral fracture Deep venous thrombosis Gastroesophageal reflux disease Hypertension Nicotine dependence Pancreatitis Vitamin B12 deficiency Surgical History Surgical History History of bilateral knee arthroplasty Family History Family History Mother Hypertension Sibling Hypertension Other Cancer Social History Social History Social History: Surrogate decision maker: Kavita Evans, . Code status: Full code. Smoking packs per day: 1 Smoking cigarettes per day: 20.0 Years smoked: 45 Smoking pack-years: 45.00 Smoking status: Current every day smoker Tobacco type: cigarettes Second hand tobacco smoke exposure: Yes Alcohol intake: current Drinks per week: 15 Substance use: current Substance use type: marijuana Do You Feel Safe in your Home?: No Lack of Transportation: No Lack of Food: Never True Current Housing: I Have Housing Concerned About Future Housing: No Difficulty Paying Gas/Electric Bills: No Difficulty Paying for Meds: No Currently Unemployed: No Education: High School Diploma/GED Difficulty w/ Childcare or Family Care: No Living arrangements: with family Additional living arrangements comments: The patient lives with his in [place]. Additional occupation/education comments: [employer] . Spiritual care concerns: No Exam Narrative: GENERAL: Well-appearing, well-nourished, and in no acute distress. HEAD: Normocephalic, atraumatic. EYES: PERRLA and EOMI. ENT: Nares clear, no rhinorrhea or epistaxis. Mucous membranes moist. NECK: Supple. CHEST: Clear to auscultation. No respiratory distress. HEART: Regular rate and rhythm. No murmur heard. Normal peripheral pulses. ABDOMEN: Soft, nontender, nondistended, normal active bowel sounds. EXTREMITIES: Normal range of motion. No edema. SKIN: Warm, dry, no rash. NEURO: No focal deficits. Alert and oriented x3. PSYCH: Normal mood and affect. Course Vital Signs Vital signs: Vital Signs Pulse Rate 76 02/01/24 23:32 Respiratory Rate 15 02/01/24 23:32 Blood Pressure 96/74 L 02/01/24 23:32 Pulse Oximetry 100 02/01/24 23:32 Oxygen Delivery Room Air 02/01/24 23:32 Pulse Rate 106 H 02/01/24 23:44 Respiratory Rate 15 02/01/24 23:32 Blood Pressure 118/96 H
[2024-02-02 01:23] LABS: Appearance Urine Cloudy (Clear); Bilirubin Urine 1+ (Negative); Blood Urine Negative (Negative); Color Urine Dark Yellow (Yellow); Glucose Urine UA Negative (Negative); Ketones Urine Trace mg/dL (Negative); Leukocyte Esterase Ur Trace LEU/UL (Negative); Nitrate Urine Negative (Negative); Protein Urine 1+ mg/dL (Negative); RBC Urine 0-2 /hpf (0-2); Squamous Epithelial Cell Urine Occasional /hpf (Few); WBC Urine 0-5 /hpf (0-3); pH Urine 5.5 (5.0-9.0)
[2024-02-02 01:24] LABS: Need Manual Microscopic Reviewed
[2024-02-02 01:28] LABS: Bacteria Urine Trace /hpf
[2024-02-02 01:31] LABS: Add Urine Microscopic? YES
[2024-02-02] MEDS: SODIUM CHLORIDE 0.9% IV 1,000 ML 125 ML IV CONT ×3 (01:33→17:39)
[2024-02-02] MEDS: SODIUM CHLORIDE 0.9% IV 1,000 ML 999 ML IV CONT (01:33)
[2024-02-02] MEDS: MAGNESIUM SULF 2 GM/WATER 50ML 2 GM/50 ML BAG IVPB (01:33)
--- NOTE | 2024-02-02 01:57 | PM.IMHP ---
H&P: HPI History of Present Illness Date/Time: 02/02/24 01:57 Chief Complaint: syncope Narrative: This is a 64-year-old male with past medical history significant for alcohol dependence, chronic anticoagulation, deep vein thrombosis, GERD, tobacco dependence, DJD. patient was brought to the emergency room for evaluation after he was found down by , patient has no recollection of events he had been drinking alcohol although he insist it was not that much and apparently with poor per orally intake. He has been in his usual state of health prior to this. emergency room patient was found to be orthostatic an alcohol level of 265. Patient received IV fluids and has been placed in observation for further evaluation management and treatment Noncontrast CT scan of the cervical spine Technique: Multiple contiguous axial [address] images of the cervical spine were obtained and reconstructed in 2D sagittal and coronal planes on the acquisition scanner. Dose reduction technique was used on this scan by utilizing automated exposure control, adjustment of the mA and/or kV according to patient size. The dose-length product (DLP) was 377.90 mGy-cm. Clinical History: Pain Findings: No acute fracture seen. There is 4 mm anterolisthesis of C4 over C5. There is minimal grade 1 retrolisthesis of C5 over C6. There is severe degenerative disc narrowing at C2-C3, C3-C4, C5-C6, and C6-C7. Probable mild canal stenosis at C2-C3 and mild bilateral neural foraminal narrowing. There is bilateral neural foraminal narrowing at C3-C4, severe left-sided facet arthropathy. There is probable mild bilateral neural foraminal narrowing at C4-C5, with bilateral facet arthropathy, right worse than left. There is bilateral neural foraminal narrowing at C5-C6 and C6-C7. No prevertebral soft tissue swelling. Impression: No acute fracture. 4 mm anterolisthesis of C4 over C5. Minimal grade 1 retrolisthesis of C5 over C6. Advanced degenerative spondylosis, as above. Non-contrast Head CT History: Head injury COMPARISON: 07/28/2023 Technique: Axial non-contrast imaging of the brain was performed. Dose reduction technique was used on this scan by utilizing automated exposure control and iterative reconstruction technique. The dose-length product (DLP) was 605.33 mGy-cm. Findings: There is no evidence of intracranial hemorrhage, mass lesion, or acute infarct. Brain parenchyma appears normal. The ventricles and subarachnoid spaces are normal in size. The calvarium appears normal. The visualized paranasal sinuses and mastoid air cells are clear. Impression: No significant abnormality seen. Portable chest x-ray Comparison: 07/28/2023 Clinical History: Syncope Findings: Lungs are clear, without focal consolidation or pleural effusion. Cardiomediastinal silhouette is stable. Bones and soft tissues are unremarkable. Impression: Normal chest. Review of Systems Review of Systems: syncope ROS unobtainable: Yes other (enebriated) [facility] Past Medical History Medical History Alcohol use Anemia Arthritis Chronic anticoagulation Closed left femoral fracture Deep venous thrombosis Gastroesophageal reflux disease Hypertension Nicotine dependence Pancreatitis Vitamin B12 deficiency Surgical History Surgical History History of bilateral knee arthroplasty Family History Family History Mother Hypertension Sibling Hypertension Other Cancer Social History Social History Social History: Surrogate decision maker: Kavita Evans, . Code status: Full code. Smoking packs per day: 1 Smoking cigarettes per day: 20.0 Years smoked: 45 Smoking pack-years: 45.00 Smoking statu
--- NOTE | 2024-02-02 02:19 | ADMGEN ---
This patient, Ty Evans, was admitted to Medical Room 255-01. Patient/family oriented to hospital policies and general routines including ID bracelet, bed and alarms, visiting hours, pain management, procedures, bathroom and other care routines, personal items, smoking policy, room service/diet, and visiting hours. Information on how to activate the Rapid Response Team has been discussed. Patient/Family are encouraged to report perceived risks to care and to ask questions if they do not understand what they are told or what they should do.
[2024-02-02 03:17] LABS: Reflex Lactic Acid Yes or No Add Lactic
[2024-02-02 03:58] LABS: Lactic Acid 2.5 mmol/L (0.7-2.0)
[2024-02-02 03:59] LABS: Anion Gap 12 mmol/L (4-12); Blood Urea Nitrogen 12 mg/dL (9-20); Calcium 8.1 mg/dL (8.4-10.2); Carbon Dioxide 16 mmol/L (22-30); Chloride 111 mmol/L (98-107); Estimated CRCL calculation 51 ml/min; Estimated Glomerular Filt Rate > 60; Glucose 107 mg/dL (65-110); Potassium 3.8 mmol/L (3.4-5.0); Sodium 139 mmol/L (137-145)
--- NOTE | 2024-02-02 10:47 | PM.IMPN ---
Progress Note: A&P Assessment and Plan (1) Syncope: Code(s): R55 - Syncope and collapse Status: Acute Assessment and Plan: 02/02/24: Likely due to alcohol intake versus orthostatic hypotension versus vasovagal response versus true syncope Continue orthostatic blood pressure Continue IV fluids Continue cardiac monitoring Will obtain an echo today (2) Alcohol use: Code(s): Z78.9 - Other specified health status Status: Acute Assessment and Plan: 02/02/24: ETOH level 255 Continue thiamine Continue IV fluids (3) Dehydration: Code(s): E86.0 - Dehydration Status: Acute Assessment and Plan: 02/02/24: Continue IV fluid likely cause of orthostatic hypotension (4) Nicotine dependence: Code(s): F17.200 - Nicotine dependence, unspecified, uncomplicated Status: Acute Assessment and Plan: 02/02/24: Nicotine patch ordered (5) Acid reflux: Code(s): K21.9 - Gastro-esophageal reflux disease without esophagitis Status: Acute Assessment and Plan: 02/02/24: Continue Protonix (6) Hypertension: Code(s): I10 - Essential (primary) hypertension Status: Acute Assessment and Plan: 02/02/24: Patient have an orthostatic blood pressures Will hold amlodipine today. Time Spent With Patient Time with patient: 25 - 35 minutes Subjective Date/time seen: 02/02/24 10:47 Interval history: This is a 64-year-old male who presented to the hospital today with syncopal episode. Patient was brought to the emergency room for evaluation after he was found down by his , patient has no recollection of the event however he was drinking alcohol and was found to be orthostatic with an alcohol level 265. He was given IV fluids in the ED. workup in the hospital included a CT of the cervical spine which was negative for fracture, showed advanced degenerative spondylosis. Head CT was negative. Chest x-ray was negative. Initial labs showed a normal white blood cell count of 5.4, hemoglobin 12.5, bicarb 19, anion gap 15, lactic acid 4.2, creatinine 1.9, EGFR 43, magnesium 1.5, total bili 1.4, AST 89, ALT 70, troponin was negative. A UA was also obtained which showed 1+ urine protein, trace urine ketone, 1+ urine bili, trace leukocyte, trace bacteria. Last echo from 06/24/2022 was reviewed and showed a normal LV systolic function with estimated EF of 60-65%, grade 1 diastolic dysfunction. Patient was given 5 minutes, 2 L normal saline, 2 g magnesium while in the ED. On examination today patient is alert and oriented x3, lying in the bed. Family at the bedside. Patient denies any fever, chills, nausea, vomiting, diarrhea abdominal pain, chest pain, shortness a breath, lightheadedness, dizziness vision changes. Patient endorses mild headache. Labs today show bicarb 16, creatinine down to 1.3, anion gap 12, lactic acid 2.5. Patient did have orthostatic blood pressures done which did reveal a 30 mmHg drop from supine to sitting and a 40 mmHg drop from sitting to standing. Review of Systems Review of Systems: All systems reviewed & are unremarkable except as noted in HPI and below ROS unobtainable: Yes other (enebriated) Constitutional: Constitutional: Reports as per HPI and Reports no additional constitutional complaints Eyes: Eyes: Reports as per HPI and Reports no additional eye complaints ENT: Reports system reviewed and no additional complaints, except as documented and Reports as per HPI Cardiovascular: Cardiovascular: Reports as per HPI and Reports no additional cardiovascular complaints Respiratory: Respiratory: Reports as per HPI and Reports no additional respiratory complaints Gastrointestinal: Gastrointestinal: Reports as per HPI and Reports no additional gastrointestinal complaints Genitourinary: Genitourinary: Reports no additional male genitourinary complaints and Reports as per HPI Musculoskeletal: Musculoskeletal: Re
[2024-02-02 11:08] LABS: Basophils Percent Auto 0.5 % (0.2-1.2); Eosinophils Absolute Auto 0.1 K/mm3 (0-0.3); Eosinophils Percent Auto 1.2 % (0-4.4); Hematocrit 32.1 % (42.0-52.0); Hemoglobin 10.6 g/dL (14.0-18.0); Immature Granulocyte Absolute 0.02 K/mm3 (0.00-0.031); Immature Granulocyte Percent A 0.3 % (0-0.5); Lymphocytes Absolute Auto 1.84 K/mm3 (0.9-3.2); Lymphocytes Percent Auto 30.9 % (18.3-44.2); Mean Corpuscular Hemoglobin 36.9 pg (26-34); Mean Corpuscular Volume 111.8 fl (80-100); Mean Platelet Volume 10.7 fl (7.4-10.4); Monocytes Absolute Auto 0.7 K/mm3 (0.1-0.6); Monocytes Percent Auto 11.1 % (2.6-8.5); Neutrophils Absolute Auto 3.3 K/mm3 (1.3-6.7); Platelet Count Result 187 k/mm3 (150-375); Red Blood Count 2.87 M/mm3 (4.6-6.20); Red Cell Distribution Width 14.2 % (11.5-14.5)
[2024-02-02 11:18] LABS: Magnesium 2.3 mg/dL (1.6-2.3)
[2024-02-02 11:21] LABS: Anisocytosis 1+; Platelet Estimate Adequate (Adequate); Poikilocytosis 1+; Schistocytes None Seen
[2024-02-02] MEDS: PANTOPRAZOLE 40 MG TABLET PO (11:37)
[2024-02-02] MEDS: THIAMINE HCL 100 MG TABLET PO (11:37)
[2024-02-02] MEDS: ACETAMINOPHEN 325 MG TABLET 650 MG PO (11:37)
[2024-02-02] MEDS: APIXABAN 2.5 MG TABLET PO (17:36)
[2024-02-03] VITALS: PULSE 75
[2024-02-03] MEDS: SODIUM CHLORIDE 0.9% IV 1,000 ML 125 ML IV CONT ×2 (02:04→10:02)
[2024-02-03 03:49] VITALS: BP 142/92; PULSE 74; RESP 20; TEMP 37.2; O2SAT 100
[2024-02-03 04:00] VITALS: PULSE 82
[2024-02-03 08:00] VITALS: PULSE 74
[2024-02-03] MEDS: CYANOCOBALAMIN 1,000 MCG TABLET 1000 MCG PO (08:45)
[2024-02-03] MEDS: THIAMINE HCL 100 MG TABLET PO (08:45)
[2024-02-03] MEDS: PANTOPRAZOLE 40 MG TABLET PO (08:45)
[2024-02-03] MEDS: ACETAMINOPHEN 325 MG TABLET 650 MG PO (08:46)
[2024-02-03] MEDS: APIXABAN 2.5 MG TABLET PO (08:46)
[2024-02-03 10:40] VITALS: BP 139/84; PULSE 71
--- NOTE | 2024-02-03 10:43 | PM.DS ---
DS: Admitting Diagnosis Discharge Date 02/03/24 Admitting Diagnosis Syncope Chronic pancreatitis Alcohol use Nicotine dependent Dehydration Acid reflux Hypertension DS: Discharge Diagnosis Discharge Diagnosis (1) Syncope: Code(s): R55 - Syncope and collapse Status: Acute (2) Alcohol use: Code(s): Z78.9 - Other specified health status Status: Acute (3) Dehydration: Code(s): E86.0 - Dehydration Status: Acute (4) Nicotine dependence: Code(s): F17.200 - Nicotine dependence, unspecified, uncomplicated Status: Acute (5) Acid reflux: Code(s): K21.9 - Gastro-esophageal reflux disease without esophagitis Status: Acute (6) Hypertension: Code(s): I10 - Essential (primary) hypertension Status: Acute DS: Summary Hospital Course Reason for hospitalization: Syncope Chronic pancreatitis Alcohol use Nicotine dependent Dehydration Acid reflux Hypertension Hospital Course: This is a 64-year-old male who presented to the hospital today with syncopal episode. Patient was brought to the emergency room for evaluation after he was found down by his , patient has no recollection of the event however he was drinking alcohol and was found to be orthostatic with an alcohol level 265. He was given IV fluids in the ED. workup in the hospital included a CT of the cervical spine which was negative for fracture, showed advanced degenerative spondylosis. Head CT was negative. Chest x-ray was negative. Initial labs showed a normal white blood cell count of 5.4, hemoglobin 12.5, bicarb 19, anion gap 15, lactic acid 4.2, creatinine 1.9, EGFR 43, magnesium 1.5, total bili 1.4, AST 89, ALT 70, troponin was negative. A UA was also obtained which showed 1+ urine protein, trace urine ketone, 1+ urine bili, trace leukocyte, trace bacteria. Last echo from 06/24/2022 was reviewed and showed a normal LV systolic function with estimated EF of 60-65%, grade 1 diastolic dysfunction. Patient was given 5 minutes, 2 L normal saline, 2 g magnesium while in the ED. Today patient denies any new complaints. His creatinine is back down to 0.8. VSS, he is afebrile, currently on room air. Orthostatic blood pressures reviewed and were stable. He is stable for discharge at this time. He will need to follow up with PCP in 1 week. Syncope ruled out. Echo revealed normal LV systolic function with an estimated EF of 55-60% and essentially normal. Elevated bili and elevated liver enzymes likely due to his alcohol abuse. He has had hepatitis panel done in the past which was negative. He has also had elevated bilirubin on previous visits ranging 1.9-2.1. This is likely alcoholic liver disease. Final diagnosis: Acute kidney injury, dehydration, alcohol abuse, elevated bili, elevated liver enzymes Status at Discharge Cognitive/behavioral status at discharge: Alert and oriented x3 Functional status at discharge: independent ambulation Overall status at discharge: patient is progressing back to baseline Time Spent with Patient Time attestation: Total time spent providing and/or coordinating discharge services: Time spent: Greater than 30 minutes Exam Narrative: General: In no acute distress, well nourished Cardiac: Normal S1 and S2. RRR, No murmur, gallops or friction rubs, peripheral pulses intact. Respiratory: Lungs clear to auscultation, no adventitious lung sounds, currently on room air Gastrointestinal: soft, non-distended, non-tender, normoactive bowel sounds. : voiding without difficulty. Neuro: Alert and oriented x4 DS: Data Data Completed and Pending Completed studies during hospitalization: Cervical spine CT Head CT Chest x-ray Pending studies at discharge: None Labs on day of discharge: Labs from last 24 hours 02/02/24 03:44 WBC 6.0 RBC 2.87 L Hgb 10.6 L Hct 32.1 L MCV 111.8 H MCH 36.9 H MCHC 33.0 RDW 14.2 Plt Count 187 MPV 10.7 H Immatur
[2024-02-03 10:58] VITALS: BP 122/83; BP 123/90; PULSE 72; PULSE 93
[2024-02-03 11:02] LABS: Hematocrit 31.8 % (42.0-52.0); Hemoglobin 11.3 g/dL (14.0-18.0); Mean Corpuscular HGB Conc 35.5 g/dl (32-36); Mean Corpuscular Volume 104.3 fl (80-100); Mean Platelet Volume 9.6 fl (7.4-10.4); Platelet Count Result 184 k/mm3 (150-375); Red Blood Count 3.05 M/mm3 (4.6-6.20); Red Cell Distribution Width 13.2 % (11.5-14.5); White Blood Count 4.5 K/mm3 (4.5-10.0)
[2024-02-03 11:14] LABS: Alanine Aminotransferase 55 U/L (6-50); Albumin Level 3.8 g/dL (3.5-5.1); Alkaline Phosphatase 49 U/L (38-126); Anion Gap 5 mmol/L (4-12); Aspartate Amino Transferase 66 U/L (17-59); Bilirubin,Total 1.7 mg/dL (0.2-1.3); Blood Urea Nitrogen 7 mg/dL (9-20); Calcium 8.4 mg/dL (8.4-10.2); Carbon Dioxide 25 mmol/L (22-30); Chloride 105 mmol/L (98-107); Estimated CRCL calculation 81 ml/min; Estimated Glomerular Filt Rate > 60; Glucose 94 mg/dL (65-110); Sodium 135 mmol/L (137-145)
[2024-02-03] MEDS: amLODIPine BESYLATE 5 MG TABLET 10 MG PO (12:01)
[2024-02-03] MEDS: POTASSIUM CHLORIDE 20 MEQ ER TABLET 40 MEQ PO (12:02)
== END 2024-02-03 12:27 | disposition home or self-care (01) ==
LOC: ANHED 02-02 01:22 → ANH2MED 02-02 02:51
PROVIDERS: Admitting Provider Internal Medicine; Emergency Provider Emergency Medicine; Visit Provider Nurse Practitioner Acute Care
DX: N17.9 Acute kidney failure, unspecified (principal); K86.1 Other chronic pancreatitis; E86.0 Dehydration; E83.42 Hypomagnesemia; F10.10 Alcohol abuse, uncomplicated; E80.6 Other disorders of bilirubin metabolism; R79.89 Other specified abnormal findings of blood chemistry; I10 Essential (primary) hypertension; K21.9 Gastro-esophageal reflux disease without esophagitis; Z86.718 Personal history of other venous thrombosis and embolism; F17.210 Nicotine dependence, cigarettes, uncomplicated; F12.90 Cannabis use, unspecified, uncomplicated; Z79.01 Long term (current) use of anticoagulants; Z79.899 Other long term (current) drug therapy
CPT/HCPCS: 36415; 70450; 71045; 72125; 80048; 80053; 80307; 81001; 83605; 83735; 84484; 85025; 85027; 93005; 93306; 96360; 96361; 96365; 96366; 96367; 96368; 99285; A9270; G0378; J3411; J3475; J7030

== ENCOUNTER 2024-12-10 17:21 | Emergency (ER) | payer OTHER, SELFPAY ==
[2024-12-10] VITALS (31 sets, daily range): BP systolic 130–168; BP diastolic 84–120; PULSE 95–110; RESP 16–18; TEMP 36.6; O2SAT 95–100
--- NOTE | ~2024-12-10 | CT_ITS ---
History: Paresthesias PROCEDURE: CT head without contrast. COMPARISON: 01/12/2024 TECHNIQUE: Axial imaging of the head performed from the skull base to the vertex without IV contrast. Sagittal a nd coronal reformations obtained. DLP: 681 mGy-cm FINDINGS: The ventricles are normal in size, shape and position. There is no mass, mass effect or midline shift. There is no abnormal extra-axial fluid collection or intracranial hemorrhage. Air-fluid level within the right maxillary sinus. The mastoid air cells are well aerated. No acute displaced fractures within the overlying cranium. Impression: No acute intracranial hemorrhage or suspicious mass effect. Reviewed, dictated and finalized at location A. Impression: No acute intracranial hemorrhage or suspicious mass effect.
--- NOTE | ~2024-12-10 | US_ITS ---
EXAMINATION:US venous doppler UE LT INDICATION:Pain and numbness and tingling TECHNIQUE: Multiple grayscale, color flow and Doppler images of the right upper extremity deep venous systems were obtained and reviewed. COMPARISON:None FINDINGS: The right jugular, subclavian, axillary, brachial, basilic, cephalic, radial and ulnar vein s demonstrate normal respiratory variation and compressibility. Color flow is also seen within the right jugular, subclavian, axillary, brachial, basilic, cephalic and radial veins. IMPRESSION: No right upper extremity deep venous thrombosis. Reviewed, dictated and finalized at location A.
--- NOTE | ~2024-12-10 | CT_ITS ---
History: Paresthesias PROCEDURE: CT cervical spine without intravenous contrast. COMPARISON: 02/01/2024 TECHNIQUE: Multiple contiguous axial images of the cervical spine were performed without the administration of i ntravenous contrast. DLP: 378 mGy-cm FINDINGS: Significant degenerative disease is identified within the cervical spine, with osteophyte formation ( some bridging) disc space narrowing, endplate changes and facet arthropathy. No acute fractures are present. The bilateral lung apices are unremarkable. No soft tissue abnormality is present. The airway is patent. Impression: Significant degenerative disease, without acute fracture. Reviewed, dictated and finalized at location A. Impression: Significant degenerative disease, without acute fracture.
--- NOTE | 2024-12-10 18:03 | ED_ITS ---
HPI - Extremity Problem General Chief complaint: Extremity Problem,Nontraumatic <Abena Choi PA-C - Last Filed: 12/12/24 09:45> Stated complaint: L arm numbness that started yesterday <Abena Choi PA-C - Last Filed: 12/12/24 09:45> Time Seen by Provider: 12/10/24 18:03 <Abena Choi PA-C - Last Filed: 12/12/24 09:45> Focused HPI: This is a 64 year old male that presents to the ER for left arm paresthesias. Reports shooting pain in the arm. Reports he woke up like this yesterday. Denies vision changes, other focal numbness/weakness. GENERAL: Well-appearing, well-nourished, and in no acute distress. HEAD: Normocephalic, atraumatic. CHEST: Clear to auscultation. ?No respiratory distress. HEART: Regular rate and rhythm.? NEURO: ?Alert and oriented x3. Patient screened in triage and initial orders placed.? ?Additional care and disposition to be based upon?diagnostic testing and treatment. <Abena Choi PA-C - Last Filed: 12/12/24 09:45> History of Present Illness HPI Narrative: agree with MSE <Kika Olvera MD - Last Filed: 12/11/24 04:06> Related Data Home medications: Home Medications ?Medication ?Instructions ?Recorded ?Confirmed ?Last Taken ?Type amlodipine 10 mg tablet 10 mg PO QAM 06/04/21 02/02/24 07/27/23 History apixaban 5 mg tablet 2.5 mg PO BID 06/04/21 02/02/24 07/27/23 History omeprazole 40 mg capsule,delayed 40 mg PO QAM 06/04/21 02/02/24 06/23/22 History release sildenafil 100 mg tablet 100 mg PO DAILY PRN Erectile 06/04/21 02/02/24 Unknown History Dysfunction acetaminophen 325 mg capsule 600 mg PO Q4H 02/02/24 02/02/24 Unknown History (Tylenol) <BRIANNA Catalan Last Filed: 12/12/24 09:45> Allergies/Adverse reactions: Allergies Allergy/AdvReac Type Severity Reaction Status Date / Time No Known Allergies Allergy Verified 12/10/24 20:48 <Abena Choi PA-C - Last Filed: 12/12/24 09:45> Review of Systems 2 Review of Systems: All systems reviewed & are unremarkable except as noted in HPI and below <Kika Olvera MD - Last Filed: 12/11/24 04:06> [facility] Past Medical History Medical History: Medical History Alcohol use Anemia Arthritis Chronic anticoagulation Closed left femoral fracture Deep venous thrombosis Gastroesophageal reflux disease Hypertension Nicotine dependence Pancreatitis Vitamin B12 deficiency <Abena Choi PA-C - Last Filed: 12/12/24 09:45> Surgical History Surgical History: Surgical History History of bilateral knee arthroplasty <Abena Choi PA-C - Last Filed: 12/12/24 09:45> Family History Family History: Family History Mother Hypertension Sibling Hypertension Other Cancer <Abena Choi PA-C - Last Filed: 12/12/24 09:45> Social History Social History: Social History Social History: Surrogate decision maker: Kavita Evans, . Code status: Full code. Smoking packs per day: 1 Smoking cigarettes per day: 20.0 Years smoked: 45 Smoking pack-years: 45.00 Smoking status: Current every day smoker Tobacco type: cigarettes Second hand tobacco smoke exposure: Yes Alcohol intake: current Drinks per week: 4 Substance use: current Substance use type: marijuana Other substance usage details: EVERYDAY Do You Feel Safe in your Home?: Yes Lack of Transportation: No Lack of Food: Never True Current Housing: I Have Housing Concerned About Future Housing: No Difficulty Paying Gas/Electric Bills: No Difficulty Paying for Meds: No Currently Unemployed: No Education: High School Diploma/GED Difficulty w/ Childcare or Family Care: No Living arrangements: with family Additional living arrangements comments: The patient lives with his in [place]. Additional occupation/education comments: [employer] . Spiritual care concerns: No <Abena Choi PA-C - Last Filed: 12/12/24 09:45> Exam 2 Narrative: EXAMINATION OF ORGAN SYSTEMS/BODY AREAS: Constitutional: Vital signs per nursing GENERAL:[No acute distress, non-toxic appearing.] HEAD: Normal with no signs of head trauma. EYES: EOMI, conjunctiva normal ENT: Hearing grossly intact LUNGS: Nonlabored breathing. HEART: [Regular rate and rhythm] ABD: [Soft], [nontender to palpation] EXT: Normal range of motion SKIN: [No rashes or lesions.] NEURO: [Alert and oriented x 3. Reporting some paresthesia to the right arm that starts from mid humerus and goes to wrist. Normal strength to right upper extremity.] PSYCH: Normal affect <Kika Olvera MD - Last Filed: 12/11/24 04:06> Course Vital Signs Vital signs: Vital Signs Temperature 97.9 F 12/10/24 17:22 Pulse Rate 110 H 12/10/24 17:22 Respiratory Rate 18 12/10/24 17:22 Blood Pressure 141/86 H 12/10/24 17:22 Pulse Oximetry 100 12/10/24 17:22 Oxygen Delivery Room Air 12/10/24 17:22 Temperature 97.7 F 12/11/24 01:36 Pulse Rate 86 12/11/24 01:36 Respiratory Rate 16 12/11/24 01:36 Blood Pressure 138/95 H 12/11/24 01:36 Pulse Oximetry 100 12/11/24 01:36 Oxygen Delivery Room Air 12/10/24 17:22 <Abena Choi PA-C - Last Filed: 12/12/24 09:45> Vital Signs Temperature 97.9 F 12/10/24 17:22 Pulse Rate 110 H 12/10/24 17:22 Respiratory Rate 18 12/10/24 17:22 Blood Pressure 141/86 H 12/10/24 17:22 Pulse Oximetry 100 12/10/24 17:22 Oxygen Delivery Room Air 12/10/24 17:22 Temperature 97.7 F 12/11/24 01:36 Pulse Rate 86 12/11/24 01:36 Respiratory Rate 16 12/11/24 01:36 Blood Pressure 138/95 H 12/11/24 01:36 Pulse Oximetry 100 12/11/24 01:36 Oxygen Delivery Room Air 12/10/24 17:22 <Kika Olvera MD - Last Filed: 12/11/24 04:06> MDM - Extremity (Nontraumatic) MDM Narrative Medical decision making narrative: 64M p/w paresthesia from mid humerus to wrist of RUE; normal strength, started yesterday. Very well appearing here, given symptoms it does appear to be more peripheral with no motor involvement; doubt CVA given distribution of his symptoms but CT brain neg, CT C spine showing degenerative disease. Labs within acceptable limits though magnesium slightly low it is repleted here. On re-evaluation patient in no distress, agreeable to outpatient management with follow-up to neurologist and return precautions. <Kika Olvera MD - Last Filed: 12/11/24 04:06> Lab Data Result diagrams: 12/10/24 19:58 12/10/24 19:58 <Abena Choi PA-C - Last Filed: 12/12/24 09:45> Labs: Lab Results 12/10/24 Range/Units 19:58 WBC 4.0 L (4.5-10.0) K/mm3 RBC 3.77 L (4.6-6.20) M/mm3 Hgb 13.6 L (14.0-18.0) g/dL Hct 39.5 L (42.0-52.0) % MCV 104.8 H (80-100) fl MCH 36.1 H (26-34) pg MCHC 34.4 (32-36) g/dl RDW 13.9 (11.5-14.5) % Plt Count 224 (150-375) k/mm3 MPV 9.8 (7.4-10.4) fl Immature Gran % (Auto) 0.3 (0-0.5) % Neut % (Auto) 33.8 L (45.5-73.1) % Lymph % (Auto) 44.4 H (18.3-44.2) % [place] % (Auto) 13.4 H (2.6-8.5) % Eos % (Auto) 6.3 H (0-4.4) % Baso % (Auto) 1.8 H (0.2-1.2) % Lymph # (Auto) 1.76 (0.9-3.2) K/mm3 [place] # (Auto) 0.5 (0.1-0.6) K/mm3 Eos # (Auto) 0.3 (0-0.3) K/mm3 Baso # (Auto) 0.1 (0.0-0.1) K/mm3 Abs Immat Gran (auto) 0.01 (0.00-0.031) K/mm3 Absolute Neuts (auto) 1.3 (1.3-6.7) K/mm3 Absolute Nucleated RBC 0.000 (0.0-0.012) K/mm3 Nucleated RBC % 0.0 (0.0-0.2) % PT 13.0 (11.1-14.7) Seconds INR 0.9 APTT 28.4 (22.3-36.8) Seconds Sodium 140 (137-145) mmol/L Potassium 4.0 (3.4-5.0) mmol/L Chloride 105 (98-107) mmol/L Carbon Dioxide 25 (22-30) mmol/L Anion Gap 10 (4-12) mmol/L BUN 11 (9-20) mg/dL Creatinine 1.00 (0.7-1.3) mg/dL Estim Creat Clear Calc 63 ml/min Estimated GFR > 60 (59 - ) Glucose 96 (65-110) mg/dL Calcium 9.6 (8.4-10.2) mg/dL Magnesium 1.4 L (1.6-2.3) mg/dL Total Bilirubin 1.1 (0.2-1.3) mg/dL AST 105 H (17-59) U/L ALT 65 H (6-50) U/L Alkaline Phosphatase 56 (38-126) U/L Total Protein 8.0 (6.3-8.2) g/dL Albumin 4.5 (3.5-5.1) g/dL <Abena Choi PA-C - Last Filed: 12/12/24 09:45> Lab Results 12/10/24 Range/Units 19:58 WBC 4.0 L (4.5-10.0) K/mm3 RBC 3.77 L (4.6-6.20) M/mm3 Hgb 13.6 L (14.0-18.0) g/dL Hct 39.5 L (42.0-52.0) % MCV 104.8 H (80-100) fl MCH 36.1 H (26-34) pg MCHC 34.4 (32-36) g/dl RDW 13.9 (11.5-14.5) % Plt Count 224 (150-375) k/mm3 MPV 9.8 (7.4-10.4) fl Immature Gran % (Auto) 0.3 (0-0.5) % Neut % (Auto) 33.8 L (45.5-73.1) % Lymph % (Auto) 44.4 H (18.3-44.2) % [place] % (Auto) 13.4 H (2.6-8.5) % Eos % (Auto) 6.3 H (0-4.4) % Baso % (Auto) 1.8 H (0.2-1.2) % Lymph # (Auto) 1.76 (0.9-3.2) K/mm3 [place] # (Auto) 0.5 (0.1-0.6) K/mm3 Eos # (Auto) 0.3 (0-0.3) K/mm3 Baso # (Auto) 0.1 (0.0-0.1) K/mm3 Abs Immat Gran (auto) 0.01 (0.00-0.031) K/mm3 Absolute Neuts (auto) 1.3 (1.3-6.7) K/mm3 Absolute Nucleated RBC 0.000 (0.0-0.012) K/mm3 Nucleated RBC % 0.0 (0.0-0.2) % PT 13.0 (11.1-14.7) Seconds INR 0.9 APTT 28.4 (22.3-36.8) Seconds Sodium 140 (137-145) mmol/L Potassium 4.0 (3.4-5.0) mmol/L Chloride 105 (98-107) mmol/L Carbon Dioxide 25 (22-30) mmol/L Anion Gap 10 (4-12) mmol/L BUN 11 (9-20) mg/dL Creatinine 1.00 (0.7-1.3) mg/dL Estim Creat Clear Calc 63 ml/min Estimated GFR > 60 (59 - ) Glucose 96 (65-110) mg/dL Calcium 9.6 (8.4-10.2) mg/dL Magnesium 1.4 L (1.6-2.3) mg/dL Total Bilirubin 1.1 (0.2-1.3) mg/dL AST 105 H (17-59) U/L ALT 65 H (6-50) U/L Alkaline Phosphatase 56 (38-126) U/L Total Protein 8.0 (6.3-8.2) g/dL Albumin 4.5 (3.5-5.1) g/dL <Kika Olvera MD - Last Filed: 12/11/24 04:06> Imaging Data Radiologist's impression: ITS Impressions Venous Doppler Study 12/10/24 19:59 IMPRESSION: No right upper extremity deep venous thrombosis. Head CT 12/10/24 20:01 Impression: No acute intracranial hemorrhage or suspicious mass effect. Cervical Spine CT 12/11/24 00:44 Impression: Significant degenerative disease, without acute fracture. <Abena Choi PA-C - Last Filed: 12/12/24 09:45> Discharge Plan Discharge Clinical Impression: Paresthesia <Abena Choi PA-C - Last Filed: 12/12/24 09:45> Patient Disposition: Home <Abena Choi PA-C - Last Filed: 12/12/24 09:45> Condition: Stable <Abena Choi PA-C - Last Filed: 12/12/24 09:45> Instructions: Paresthesia (ED) <Abena Choi PA-C - Last Filed: 12/12/24 09:45> Additional Instructions: Please follow-up with your primary care doctor and neurologist. If you start noticing any chest pain or difficulty breathing or weakness or anything else concerning, please come back to the hospital immediately. <Abena Choi PA-C - Last Filed: 12/12/24 09:45> Patient Language: Occitan <Abena Choi PA-C - Last Filed: 12/12/24 09:45> Prescriptions: No Action omeprazole 40 mg Capsule,Delayed Release(Dr/Ec) 40 mg PO QAM sildenafil 100 mg Tablet 100 mg PO DAILY PRN (Reason: Erectile Dysfunction) amlodipine 10 mg Tablet 10 mg PO QAM apixaban 5 mg Tablet 2.5 mg PO BID Rx Instructions: Take 1/2 of the pill in the morning & other 1/2 around 3-4pm cyanocobalamin (vitamin B-12) [Vitamin B-12] 1,000 mcg Tablet 1,000 mcg PO QAM Qty: 30 0RF Patient Comments: Pt takes when he remembers acetaminophen [Tylenol] 325 mg Capsule 600 mg PO Q4H <Abena Choi PA-C - Last Filed: 12/12/24 09:45> Follow-up/Referrals: Giacomo Delatorre MD [Physician] - 2 Days [facility] [Primary Care Provider] - <Abena Choi PA-C - Last Filed: 12/12/24 09:45>
[2024-12-10 20:03] LABS: Basophils Absolute Auto 0.1 K/mm3 (0.0-0.1); Basophils Percent Auto 1.8 % (0.2-1.2); Eosinophils Absolute Auto 0.3 K/mm3 (0-0.3); Eosinophils Percent Auto 6.3 % (0-4.4); Hematocrit 39.5 % (42.0-52.0); Hemoglobin 13.6 g/dL (14.0-18.0); Immature Granulocyte Absolute 0.01 K/mm3 (0.00-0.031); Immature Granulocyte Percent A 0.3 % (0-0.5); Lymphocytes Absolute Auto 1.76 K/mm3 (0.9-3.2); Lymphocytes Percent Auto 44.4 % (18.3-44.2); Mean Corpuscular HGB Conc 34.4 g/dl (32-36); Mean Corpuscular Hemoglobin 36.1 pg (26-34); Mean Corpuscular Volume 104.8 fl (80-100); Mean Platelet Volume 9.8 fl (7.4-10.4); Monocytes Absolute Auto 0.5 K/mm3 (0.1-0.6); Monocytes Percent Auto 13.4 % (2.6-8.5); Neutrophils Absolute Auto 1.3 K/mm3 (1.3-6.7); Neutrophils Percent Auto 33.8 % (45.5-73.1); Platelet Count Result 224 k/mm3 (150-375); Red Blood Count 3.77 M/mm3 (4.6-6.20); Red Cell Distribution Width 13.9 % (11.5-14.5)
[2024-12-10 20:21] LABS: INR 0.9
[2024-12-10 20:22] LABS: Alanine Aminotransferase 65 U/L (6-50); Albumin Level 4.5 g/dL (3.5-5.1); Alkaline Phosphatase 56 U/L (38-126); Anion Gap 10 mmol/L (4-12); Aspartate Amino Transferase 105 U/L (17-59); Bilirubin,Total 1.1 mg/dL (0.2-1.3); Blood Urea Nitrogen 11 mg/dL (9-20); Calcium 9.6 mg/dL (8.4-10.2); Carbon Dioxide 25 mmol/L (22-30); Chloride 105 mmol/L (98-107); Estimated CRCL calculation 63 ml/min; Estimated Glomerular Filt Rate > 60; Glucose 96 mg/dL (65-110); Magnesium 1.4 mg/dL (1.6-2.3); Partial Thromboplastin Time 28.4 Seconds (22.3-36.8); Sodium 140 mmol/L (137-145)
--- OUTSIDE RECORDS SUMMARY | 2024-12-10 20:49 | XMS_ITS | Continuity of Care Document ---
Author Name [facility] Organization [facility] Care Team Providers Care Trimmer Climber Name Role Phone [facility] Unavailable Unavailable Problems Combined list of problems from Department of Defense and Veterans Affairs facilities. It does not include entries that were removed or entered in error. Problem Status Onset Date Problem Type Date of Resolution Comments Source Alcohol Abuse (SCT [id number]) Active Condition [facility] Alcohol dependence (SNOMED CT 65957716) Active Condition [facility] Arteriosclerosis of carotid artery Active Condition Jan 06 Entered By: ADOLFO BENAVIDEZ Comment: Arteriosclerosis of the aorta and coronary arteries: LDCT 04/2022 [facility] Artificial knee joint present Active Condition [facility] Bilateral carpal tunnel syndrome Active Condition [facility] Chronic pancreatitis Active Condition [facility] Erectile Dysfunction ([facility] [id number]) Active Condition [facility] Family history of cancer of colon Active Condition [facility] GERD - Gastro-Esophageal Reflux Disease ([facility] 134981003) Active Condition [facility] Heart rate fast Active Condition [facility] HTN - Hypertension ([facility] [id number]) Active Condition [facility] Hyperlipidemia ([facility] 22711380) Active Condition [facility] Mass of skin Active Condition [facility] Mass of tongue Active Condition [facility] OA - Osteoarthrosis Active Condition [facility] Osteoarthritis of knee Active Condition [facility] Osteoporosis Active Condition [facility] Pancreatic cyst Active Condition Jan 06, 2023 Entered By: ADOLFO BENAVIDEZ Comment: Microcytic cystic pancreatic lesion, likely pancreatic pseudocyst from chronic pancreatitis [facility] Periprosthetic fracture Active Condition [facility] Pulmonary emphysema Active Condition Jan 06, 2023 Entered By: ADOLFO BENAVIDEZ Comment: LDCT 04/2022: Mild emphysema with some bullae/blebs, stable. [facility] Steatosis of liver Active Condition [facility] Syncope and Collapse ([facility] [id number]) Active Condition [facility] Tobacco User ([facility] 290590599) Active Condition [facility] Venous thrombosis Active Condition [facility] Impotence of organic origin Inactive Condition 04/28/2018 [facility] Osteoarthrosis involving the knee Inactive Condition 04/28/2018 [facility] Diagnosis: ICD-10-CM K21.9 Gastro-esophageal reflux disease without esophagitis Active Diagnosis [facility] Diagnosis: ICD-10-CM S92.911A Unsp fracture of right toe(s), init for clos fx Active Diagnosis [facility] Diagnosis: ICD-10-CM Z12.2 Encntr screen for malignant neoplasm of respiratory organs Active Diagnosis [facility] Diagnosis: ICD-10-CM H40.1232 Low-tension glaucoma, bilateral, moderate stage Active Diagnosis [facility] Diagnosis: ICD-10-CM Z51.81 Encounter for therapeutic drug level monitoring Active Diagnosis [facility] Diagnosis: ICD-10-CM Z23 Encounter for immunization Active Diagnosis [facility] Diagnosis: ICD-10-CM Z00.00 Encntr for general adult medical exam w/o abnormal findings Active Diagnosis [facility] Diagnosis: ICD-10-CM Z76.0 Encounter for issue of repeat prescription Active Diagnosis [facility] Medications Combined list of outpatient medications from Department of Defense and Veterans Affairs facilities.Medications provided include 1) outpatient medications from the last 15 months, and 2) patient-reported medications. Medication Details Route Status Patient Instructions Prescription Expires Prescription Number Last Dispense Date Ordering Provider Order Date Order Qty Source AMLODIPINE BESYLATE 10MG TAB TAKE ONE TABLET BY MOUTH ONCE A DAY TO LOWER BLOOD PRESSURE ORAL ACTIVE 01/30/2025 [id number] ELENA BENAVIDEZCA K 2023 90 [facility] APIXABAN 5MG TAB TAKE ONE-HALF TABLET BY MOUTH TWICE A DAY FOR ANTICOAG ULATION ORAL ACTIVE 05/24/2025 [id number] [facility] 2023 30 [facility] APIXABAN 5MG TAB TAKE ONE-HALF TABLET BY MOUTH TWICE A DAY FOR ANTICOAG ULATION ORAL DISCONT INUED 04/15/2024 [id number] [facility] 2022 30 [facility] BRIMONIDINE TARTRATE 0.2% SOLN,OPH INSTILL 1 DROP IN BOTH EYES TWICE A DAY OPHTHA LMIC ACTIVE 07/04/2025 [id number] [facility] 2023 20 [facility] CALCIUM 600MG ( CARBONATE)/ VITAMIN D 400UNIT TAB TAKE 1 TABLET BY MOUTH TWICE A DAY WITH FOOD ORAL ACTIVE 05/04/2025 [id number] 4 ELENA BENAVIDEZCA K 2023 180 [facility] CARBOXYMETH YLCELLULOSE NA 0.5% SOLN,OPH INSTILL 1 DROP IN BOTH EYES FOUR TIMES A DAY NEEDED OPHTHA LMIC ACTIVE 05/04/2025 [id number] 5 ELENA BENAVIDEZCA K 2023 30 [facility] CARBOXYMETH YLCELLULOSE NA 0.5% SOLN,OPH INSTILL 1 DROP IN BOTH EYES FOUR TIMES A DAY NEEDED OPHTHA LMIC DISCONT INUED 05/04/2025 [id number] 4 ELENA BENAVIDEZCA Miriam 2023 45 [facility] DICLOFENAC NA 1% GEL,TOP APPLY 4 GM TO AFFECTED AREA(S) FOUR TIMES A DAY FOR PAIN/INF LAMMATIO N; NOT MORE THAN 16 GRAMS DAILY TO ANY LOWER EXTREMIT Y JOINT. NOT MORE THAN 8 GRAMS DAILY TO ANY UPPER EXTREMIT Y JOINT. MAX 32GM/DAY OVER ALL JOINTS. (MEASURE DOSE WITH RULER ATTACHED INSIDE BOX) TOPICA L ACTIVE 05/04/2025 [id number] 4 ELENA BENAVIDEZ 2023 100 [facility] OMEPRAZOLE 40MG CAP,EC TAKE ONE CAPSULE BY MOUTH TWICE A DAY TAKE 30 MINUTES PRIOR TO FOOD. ORAL ACTIVE 09/13/2025 [id number] 5 MICHELLE ZHANG M 2024 180 [facility] OMEPRAZOLE 40MG CAP,EC TAKE ONE CAPSULE BY MOUTH EVERY MORNING BEFORE A MEAL TAKE 30 MINUTES PRIOR TO FOOD. ORAL DISCONT INUED (EDIT) 05/04/2025 [id number] 4 ELENA BENAVIDEZ 2023 90 [facility] ROSUVASTATI N CA 20MG TAB TAKE ONE-HALF TABLET BY MOUTH EVERY EVENING FOR HIGH CHOLESTE ROL ORAL ACTIVE 05/05/2025 [id number] 4 ELENA BENAVIDEZ 2023 45 [facility] SILDENAFIL CITRATE 100MG TAB TAKE ONE TABLET BY MOUTH EVERY WEEK FOR ERECTILE DYSFUNCT ION (TAKE 60 MINUTES PRIOR TO SEXUAL ACTIVITY ) - LIMIT 4 DOSES PER 30 DAYS ORAL ACTIVE 05/04/2025 [id number] 5 ELENA BENAVIDEZ 2023 18 [facility] SILDENAFIL CITRATE 100MG TAB TAKE ONE TABLET BY MOUTH EVERY WEEK FOR ERECTILE DYSFUNCT ION (TAKE 60 MINUTES PRIOR TO SEXUAL ACTIVITY ) - LIMIT 4 DOSES PER 30 DAYS ORAL 02/26/2024 [id number] 4 ELENA BENAVIDEZ 2023 4 [facility] Immunizations Combined list of available immunizations from the Department of Defense and Veterans Affairs facilities. Immunization Series Date Given Administered By Site Reaction Lot Number CVX Code Drug Head [employer] Tenn[employer] Status Comments Source COVID-19 ([employer]), MRNA, LNP-S, PF, RACHELL-SUCROSE, 30 MCG/0.3 ML (AGES 12+ YEARS) 2023 MARK PERALTA A LEFT DELTO ID [id number] complet ed [facility] INFLUENZA, SPLIT VIRUS, TRIVALENT, PF 2023 MARK PERALTA A RIGHT DELTO ID [id number] 140 complet ed [facility] COVID-19 ([employer]), MRNA, LNP-S, PF, 30 MCG/0.3 ML DOSE 2 2020 208 complet ed PFR; [id number]; 2 [facility] COVID-19 ([employer]), VECTOR-NR, [id number], PF, 0.5 ML 1 2020 212 complet ed [facility] INFLUENZA, UNSPECIFIED FORMULATION 2018 88 complet ed [facility] PNEUMOCOCCAL POLYSACCHARID E [id number] 2018 33 complet ed [facility] INFLUENZA, UNSPECIFIED FORMULATION 2013 88 complet ed [facility] INFLUENZA, UNSPECIFIED FORMULATION 2012 88 complet ed [facility] TDAP 2012 115 complet ed Left Deltoid [facility] PNEUMOCOCCAL, UNSPECIFIED FORMULATION 2008 109 complet ed [facility] TD(ADULT) UNSPECIFIED FORMULATION 2002 139 complet ed [facility] Results Combined list of recent chemistry, hematology and other laboratory results from Department of Defense and Veterans Affairs, ranging from 15 months to all on record, depending upon the facility. Order Name Results Value Reference Range Date Interpretation Specimen Comments Source URINALYSI S (STL-PB) COLOR OF URINE Yellow 05/03 Specimen Type: URINE No comment entered. Ordering Provider: BLANKA BENAVIDEZ Report Released Date/Time: May 03, 2024 03:52 PM Reporting Lab: [facility] [place] [address] Performing Lab: [facility] [facility] URINALYSI S (STL-PB) BILIRUBIN. TOTAL [PRESENCE] IN URINE BY TEST STRIP 1+mg/dL 05/03 H Specimen Type: URINE No comment entered. Ordering Provider: BLANKA BENAVIDEZ Report Released Date/Time: May 03, 2024 03:52 PM Reporting Lab: [facility] [place] [address] Performing Lab: [facility] URINALYSI S (STL-PB) PH OF URINE BY TEST STRIP 6.0 5.0 - 8.0 05/03 Specimen Type: URINE No comment entered. Ordering Provider: BLANKA BENAVIDEZ Report Released Date/Time: May 03, 2024 03:52 PM Reporting Lab: [facility] [place] [address] Performing Lab: [facility] [facility] URINALYSI S (STL-PB) LEUKOCYTES [#/AREA] IN URINE SEDIMENT BY MICROSCOPY HIGH POWER FIELD 5 /[HPF] 0 - 5 05/03 Specimen Type: URINE No comment entered. Ordering Provider: BLANKA BENAVIDEZ Report Released Date/Time: May 03, 2024 03:52 PM Reporting Lab: [facility] [place] [address] Performing Lab: [facility] DIV[facility] URINALYSI S (STL-PB) ERYTHROCYT ES [#/VOLUME] IN URINE SEDIMENT BY MICROSCOPY HIGH POWER FIELD 4 /[HPF] 0 - 5 05/03 Specimen Type: URINE No comment entered. Ordering Provider: BLANKA BENAVIDEZ Report Released Date/Time: May 03, 2024 03:52 PM Reporting Lab: [facility] [place] [address] Performing Lab: [facility] [facility] URINALYSI S (STL-PB) APPEARANCE OF URINE Clear 05/03 Specimen Type: URINE No comment entered. Ordering Provider: BLANKA BENAVIDEZ Report Released Date/Time: May 03, 2024 03:52 PM Reporting Lab: [facility] [place] [address] Performing Lab: [facility] [facility] URINALYSI S (STL-PB) NITRITE [PRESENCE] IN URINE BY TEST STRIP Negativ emg/dL 05/03 Specimen Type: URINE No comment entered. Ordering Provider: BLANKA BENAVIDEZ Report Released Date/Time: May 03, 2024 03:52 PM Reporting Lab: [facility] [place] [address] Performing Lab: [facility] [facility] URINALYSI S (STL-PB) MUCUS [PRESENCE] IN URINE SEDIMENT BY LIGHT MICROSCOPY RARE/[L PF] 05/03 Specimen Type: URINE No comment entered. Ordering Provider: BLANKA BENAVIDEZ Report Released Date/Time: May 03, 2024 03:52 PM Reporting Lab: [facility] [place] [address] Performing Lab: [facility] [facility] URINALYSI S (STL-PB) HYALINE CASTS [#/AREA] IN URINE SEDIMENT BY MICROSCOPY LOW POWER FIELD 6 /[LPF] 0 - 5 05/03 Specimen Type: URINE No comment entered. Ordering Provider: BLANKA BENAVIDEZ Report Released Date/Time: May 03, 2024 03:52 PM Reporting Lab: [facility] [place] [address] Performing Lab: [facility] [facility] URINALYSI S (STL-PB) CALCIUM OXALATE CRYSTALS [PRESENCE] IN URINE SEDIMENT BY LIGHT MICROSCOPY RARE/[H PF] 05/03 Specimen Type: URINE No comment entered. Ordering Provider: BLANKA BENAVIDEZ Report Released Date/Time: May 03, 2024 03:52 PM Reporting Lab: [facility] [place] [address] Performing Lab: [facility] [facility] URINALYSI S (STL-PB) GLUCOSE [MASS/VOLU ME] IN URINE BY TEST STRIP Normalm g/dL 05/03 Specimen Type: URINE No comment entered. Ordering Provider: BLANKA BENAVIDEZ Report Released Date/Time: May 03, 2024 03:52 PM Reporting Lab: [facility] [place] [address] Performing Lab: [facility] DIV[facility] URINALYSI S (STL-PB) PROTEIN [MASS/VOLU ME] IN URINE BY TEST STRIP 50 mg/dL - 20 05/03 H Specimen Type: URINE No comment entered. Ordering Provider: BLANKA BENAVIDEZ Report Released Date/Time: May 03, 2024 03:52 PM Reporting Lab: [facility] [place] [address] Performing Lab: [facility] [facility] URINALYSI S (STL-PB) URN.UROBIL INOGEN 4 mg/dL 05/03 H Specimen Type: URINE No comment entered. Ordering Provider: BLANKA BENAVIDEZ Report Released Date/Time: May 03, 2024 03:52 PM Reporting Lab: [facility] [place] [address] Performing Lab: [facility] DIVISION URINALYSI S (STL-PB) HEMOGLOBIN [MASS/VOLU ME] IN URINE BY TEST STRIP Negativ emg/dL 05/03 Specimen Type: URINE No comment entered. Ordering Provider: BLANKA BENAVIDEZ Report Released Date/Time: May 03, 2024 03:52 PM Reporting Lab: [facility] [place] [address] Performing Lab: [facility] DIVISION URINALYSI S (STL-PB) KETONES [MASS/VOLU ME] IN URINE BY TEST STRIP Tracemg /dL 05/03 Specimen Type: URINE No comment entered. Ordering Provider: BLANKA BENAVIDEZ Report Released Date/Time: May 03, 2024 03:52 PM Reporting Lab: [facility] [place] [address] Performing Lab: [facility] DIV[facility] URINALYSI S (STL-PB) URN.LEUK.E ST. Negativ emg/dL 05/03 Specimen Type: URINE No comment entered. Ordering Provider: BLANKA BENAVIDEZ Report Released Date/Time: May 03, 2024 03:52 PM Reporting Lab: [facility] [place] [address] Performing Lab: [facility] DIVISION URINALYSI S (STL-PB) SPECIFIC GRAVITY OF URINE 1.035 1.005 - 1.029 05/03 H Specimen Type: URINE No comment entered. Ordering Provider: BLANKA BENAVIDEZ Report Released Date/Time: May 03, 2024 03:52 PM Reporting Lab: [facility] [place] [address] Performing Lab: [facility] DIVISION COMPREHEN SIVE METABOLIC PANEL CREATININE [MASS/VOLU ME] IN SERUM OR PLASMA 1.36 mg/dL 0.70 - 1.30 05/03 H Specimen Type: PLASMA Comment: No hemolysis noted. Ordering Provider: BLANKA BENAVIDEZ Report Released Date/Time: May 03, 2024 03:52 PM Reporting Lab: [facility] [place] [address] Performing Lab: [facility] [facility] COMPREHEN SIVE METABOLIC PANEL UREA NITROGEN [MASS/VOLU ME] IN SERUM OR PLASMA 15.0 mg/dL 9.0 - 25.0 05/03 Specimen Type: PLASMA Comment: No hemolysis noted. Ordering Provider: BLANKA BENAVIDEZ Report Released Date/Time: May 03, 2024 03:52 PM Reporting Lab: [facility] [place] [address] Performing Lab: [facility] [facility] COMPREHEN SIVE METABOLIC PANEL GLUCOSE [MASS/VOLU ME] IN SERUM OR PLASMA 103 mg/dL 72 - 99 05/03 H Specimen Type: PLASMA Comment: No hemolysis noted. Ordering Provider: BLANKA BENAVIDEZ Report Released Date/Time: May 03, 2024 03:52 PM Reporting Lab: [facility] [place] [address] Performing Lab: [facility] DIVISION COMPREHEN SIVE METABOLIC PANEL SODIUM [MOLES/VOL UME] IN SERUM OR PLASMA 134 meq/L 136 - 145 05/03 L Specimen Type: PLASMA Comment: No hemolysis noted. Ordering Provider: BLANKA BENAVIDEZ ICA K Report Released Date/Time: May 03, 2024 03:52 PM Reporting Lab: [facility] [place] [address] Performing Lab: [facility] DIVISION COMPREHEN SIVE METABOLIC PANEL POTASSIUM [MOLES/VOL UME] IN SERUM OR PLASMA 3.6 meq/L 3.5 - 5.0 05/03 Specimen Type: PLASMA Comment: No hemolysis noted. Ordering Provider: BLANKA BENAVIDEZ ICA Miriam Report Released Date/Time: May 03, 2024 03:52 PM Reporting Lab: [facility] [place] [address] Performing Lab: [facility] [facility] COMPREHEN SIVE METABOLIC PANEL CHLORIDE [MOLES/VOL UME] IN SERUM OR PLASMA 98 meq/L 98 - 107 05/03 Specimen Type: PLASMA Comment: No hemolysis noted. Ordering Provider: BLANKA BENAVIDEZ ICA Miriam Report Released Date/Time: May 03, 2024 03:52 PM Reporting Lab: [facility] [place] [address] Performing Lab: [facility] DIVISION COMPREHEN SIVE METABOLIC PANEL CARBON DIOXIDE, TOTAL [MOLES/VOL UME] IN SERUM OR PLASMA 24 meq/L 22 - 31 05/03 Specimen Type: PLASMA Comment: No hemolysis noted. Ordering Provider: BLANKA BENAVIDEZ Report Released Date/Time: May 03, 2024 03:52 PM Reporting Lab: [facility] [place] [address] Performing Lab: [facility] DIVISION COMPREHEN SIVE METABOLIC PANEL CALCIUM [MASS/VOLU ME] IN SERUM OR PLASMA 10.2 mg/dL 8.4 - 10.4 05/03 Specimen Type: PLASMA Comment: No hemolysis noted. Ordering Provider: BLANKA BENAVIDEZ Report Released Date/Time: May 03, 2024 03:52 PM Reporting Lab: [facility] [place] [address] Performing Lab: [facility] DIVISION COMPREHEN SIVE METABOLIC PANEL PROTEIN [MASS/VOLU ME] IN SERUM OR PLASMA 8.3 g/dL 6.0 - 8.6 05/03 Specimen Type: PLASMA Comment: No hemolysis noted. Ordering Provider: BLANKA BENAVIDEZ Report Released Date/Time: May 03, 2024 03:52 PM Reporting Lab: [facility] [place] [address] Performing Lab: [facility] [facility]ISION COMPREHEN SIVE METABOLIC PANEL ALBUMIN [MASS/VOLU ME] IN SERUM OR PLASMA 4.2 g/dL 3.4 - 5.0 05/03 Specimen Type: PLASMA Comment: No hemolysis noted. Ordering Provider: BLANKA BENAVIDEZ Report Released Date/Time: May 03, 2024 03:52 PM Reporting Lab: [facility] [place] [address] Performing Lab: [facility] [facility] COMPREHEN SIVE METABOLIC PANEL BILIRUBIN. TOTAL [MASS/VOLU ME] IN SERUM OR PLASMA 1.7 mg/dL 0.2 - 1.2 05/03 H Specimen Type: PLASMA Comment: No hemolysis noted. Ordering Provider: BLANKA BENAVIDEZ Report Released Date/Time: May 03, 2024 03:52 PM Reporting Lab: [facility] [place] [address] Performing Lab: [facility] COMPREHEN SIVE METABOLIC PANEL ALKALINE PHOSPHATAS E [ENZYMATIC ACTIVITY/V OLUME] IN SERUM OR PLASMA 54 U/L 40 - 150 05/03 Specimen Type: PLASMA Comment: No hemolysis noted. Ordering Provider: BLANKA BENAVIDEZ Report Released Date/Time: May 03, 2024 03:52 PM Reporting Lab: [facility] [place] [address] Performing Lab: [facility] [facility] COMPREHEN SIVE METABOLIC PANEL ASPARTATE AMINOTRANS FERASE [ENZYMATIC ACTIVITY/V OLUME] IN SERUM OR PLASMA 67 U/L 5 - 34 05/03 H Specimen Type: PLASMA Comment: No hemolysis noted. Ordering Provider: BLANKA BENAVIDEZ Report Released Date/Time: May 03, 2024 03:52 PM Reporting Lab: [facility] [place] [address] Performing Lab: [facility] DIVISION COMPREHEN SIVE METABOLIC PANEL ALANINE AMINOTRANS FERASE [ENZYMATIC ACTIVITY/V OLUME] IN SERUM OR PLASMA 42 U/L 8 - 40 05/03 H Specimen Type: PLASMA Comment: No hemolysis noted. Ordering Provider: BLANKA BENAVIDEZ Report Released Date/Time: May 03, 2024 03:52 PM Reporting Lab: [facility] [place] [phone] Performing Lab: [facility] [place] [id number] DIVISION COMPREHEN SIVE METABOLIC PANEL GLOMERULAR FILTRATION RATE/1.73 SQ M.PREDICTE D [VOLUME RATE/AREA] IN SERUM, PLASMA OR BLOOD BY CREATININE -BASED FORMULA (CKD-EPI 2020) 58.11 60 05/03 Specimen Type: PLASMA Comment: No hemolysis noted. Ordering Provider: BLANKA BENAVIDEZ Report Released Date/Time: May 03, 2024 03:52 PM Reporting Lab: [facility] [place] [address] Performing Lab: [facility] FERRITIN FERRITIN [MASS/VOLU ME] IN SERUM OR PLASMA 979.11 ng/mL 22 - 275 05/03 H Specimen Type: SERUM No comment entered. Ordering Provider: BLANKA BENAVIDEZ Report Released Date/Time: May 03, 2024 03:52 PM Reporting Lab: [facility] [address] [place] [phone] Performing Lab: [phone] [place] [address] FOLATE (STL-MA) FOLATE [MASS/VOLU ME] IN SERUM OR PLASMA 8.1 ng/mL 7 - 20 05/03 Specimen Type: SERUM Comment: The listed sex of this patient may not be a typical indication for this test. Therefore, reference ranges or interpretiv e criteria listed may not be valid. Clinical correlation suggested. Ordering Provider: BLANKA BENAVIDEZ Report Released Date/Time: May 03, 2024 03:52 PM Reporting Lab: [facility] [phone] Performing Lab: [facility] [phone] [place] [address] HGA1C HEMOGLOBIN A1C/HEMOGL OBIN.TOTAL IN BLOOD 5.5 4.0 - 6.0 05/03 Specimen Type: BLOOD No comment entered. Ordering Provider: BLANKA BENAVIDEZ Report Released Date/Time: May 03, 2024 03:52 PM Reporting Lab: [facility] [phone] Performing Lab: [facility] [phone] [facility] IRON/TIBC PROFILE IRON BINDING CAPACITY [MASS/VOLU ME] IN SERUM OR PLASMA 276 ug/dL 250 - 450 05/03 Specimen Type: SERUM No comment entered. Ordering Provider: BLANKA BENAVIDEZ Report Released Date/Time: May 03, 2024 03:52 PM Reporting Lab: [place] [address] [facility] [phone] Performing Lab: [facility] [address] [facility] [phone] [facility] IRON/TIBC PROFILE TRANSFERRI N [MASS/VOLU ME] IN SERUM OR PLASMA 221 mg/dL 163 - 344 05/03 Specimen Type: SERUM No comment entered. Ordering Provider: BLANKA BENAVIDEZ Report Released Date/Time: May 03, 2024 03:52 PM Reporting Lab: [place] [address] [facility] [phone] Performing Lab: [facility] [address] [facility] [phone] [facility] IRON/TIBC PROFILE IRON SATURATION [MASS FRACTION] IN SERUM OR PLASMA 31 20 - 50 05/03 Specimen Type: SERUM No comment entered. Ordering Provider: BLANKA BENAVIDEZ Report Released Date/Time: May 03, 2024 03:52 PM Reporting Lab: [facility] [address] [facility] [phone] Performing Lab: [facility] [address] [facility] [phone] [facility] IRON/TIBC PROFILE IRON [MASS/VOLU ME] IN SERUM OR PLASMA 85 ug/dL 65 - 175 05/03 Specimen Type: SERUM No comment entered. Ordering Provider: BLANKA BENAVIDEZ Report Released Date/Time: May 03, 2024 03:52 PM Reporting Lab: [facility] [address] [facility] [phone] Performing Lab: [facility] [address] [facility] [phone] [place] [address] LIPID PANEL (STL) CHOLESTERO L [MASS/VOLU ME] IN SERUM OR PLASMA 223 mg/dL 0 - 200 05/03 H Specimen Type: PLASMA Comment: No hemolysis noted. Ordering Provider: BLANKA BENAVIDEZ Report Released Date/Time: May 03, 2024 03:52 PM Reporting Lab: [facility] [place] [id number] Performing Lab: [facility] [address] LIPID PANEL (STL) TRIGLYCERI DE [MASS/VOLU ME] IN SERUM OR PLASMA 125 mg/dL 0 - 150 05/03 Specimen Type: PLASMA Comment: No hemolysis noted. Ordering Provider: BLANKA BENAVIDEZ Report Released Date/Time: May 03, 2024 03:52 PM Reporting Lab: [facility] [address] [place] [address] Performing Lab: [facility] LIPID PANEL (STL) CHOLESTERO L IN LDL [MASS/VOLU ME] IN SERUM OR PLASMA BY CALCULATIO N 124 mg/dL 05/03 Specimen Type: PLASMA Comment: No hemolysis noted. Ordering Provider: BLANKA BENAVIDEZ Report Released Date/Time: May 03, 2024 03:52 PM Reporting Lab: [facility] [place] [address] Performing Lab: [facility] LIPID PANEL (STL) CHOLESTERO L IN HDL [MASS/VOLU ME] IN SERUM OR PLASMA 74 mg/dL 40 05/03 Specimen Type: PLASMA Comment: No hemolysis noted. Ordering Provider: BLANKA BENAVIDEZ Report Released Date/Time: May 03, 2024 03:52 PM Reporting Lab: [facility] [place] [address] Performing Lab: [facility] PROST. SPECIFIC AG.(PB-ST L) PROSTATE SPECIFIC AG [MASS/VOLU ME] IN SERUM OR PLASMA 1.433 ng/mL 0.000 - 4.000 05/03 Specimen Type: SERUM Comment: The listed sex of this patient may not be a typical indication for this test. Therefore, reference ranges or interpretiv e criteria listed may not be valid. Clinical correlation suggested. Ordering Provider: BLANKA BENAVIDEZ Report Released Date/Time: May 03, 2024 03:52 PM Reporting Lab: [facility] [place] [address] Performing Lab: [facility] TSH W/ REFLEX FT4 (STL) THYROTROPI N [UNITS/VOL UME] IN SERUM OR PLASMA 0.969 u[IU]/m L 0.470 - 5.000 05/03 Specimen Type: PLASMA No comment entered. Ordering Provider: BLANKA BENAVIDEZ Report Released Date/Time: May 03, 2024 03:52 PM Reporting Lab: [facility] [place] [address] Performing Lab: [facility] DIVISION VITAMIN D, 25-HYDROX Y 25-HYDROXY VITAMIN D3 [MASS/VOLU ME] IN SERUM OR PLASMA 30.6 ng/mL 30 - 96 05/03 Specimen Type: SERUM Comment: The listed sex of this patient may not be a typical indication for this test. Therefore, reference ranges or interpretiv e criteria listed may not be valid. Clinical correlation suggested. Ordering Provider: BLANKA BENAVIDEZ Report Released Date/Time: May 03, 2024 03:52 PM Reporting Lab: [facility] [id number] [address]forming Lab: [facility] [id number] [facility] Vital Signs Combined list of inpatient and outpatient Vital Signs from Department of Defense and Veterans Affairs, ranging from 12 months to all on record, depending upon the facility. Vital Sign Value Date Comments Source SYSTOLIC BLOOD PRESSURE 114 09/12/2024 10:37:32 [facility] DIASTOLIC BLOOD PRESSURE 80 09/12/2024 10:37:32 [facility] PULSE OXIMETRY 99 09/12/2024 10:37:32 [facility] WEIGHT 140.8 09/12/2024 10:37:32 [facility] BMI 19 kg/m2 09/12/2024 10[facility]37:[facility] PAIN 0 09/12/2024 10:37:32 [facility] TEMPERATURE 97.8 09/12/2024 10:37:32 [facility] PULSE 120 09/12/2024 10:37:32 [facility] RESPIRATION 16 09/12/2024 10:37:32 [facility] SYSTOLIC BLOOD PRESSURE 100 07/19/2024 10:12:00 [facility] DIASTOLIC BLOOD PRESSURE 70 07/19/2024 10:12:00 [facility] PAIN 4 07/19/2024 10:12:00 [facility] TEMPERATURE 98 07/19/2024 10:12:00 [facility] PULSE 96 07/19/2024 10:12:00 [facility] RESPIRATION 18 07/19/2024 10:12:00 [facility] SYSTOLIC BLOOD PRESSURE 124 05/03/2024 15:16:44 [facility] DIASTOLIC BLOOD PRESSURE 87 05/03/2024 15:16:44 [facility] PULSE OXIMETRY 98 05/03/2024 15:16:44 [facility] WEIGHT 145 05/03/2024 15:16:44 [facility] BMI 20 kg/m2 05/03/2024 15:16:44 [facility] PAIN 0 05/03/2024 15:16:44 [facility] TEMPERATURE 98.5 05/03/2024 15:16:44 [facility] PULSE 95 05/03/2024 15:16:44 [facility] RESPIRATION 16 05/03/2024 15:16:44 [facility] Encounters Combined list of: 1) Encounters from Department of [facility] facilities going backup to the last 18 months, not all CT inpatient encounters are included; 2) Encounters from the Department of [facility] facilities going backup to 280 months. Location Location Details Encounter Type Encounter Number Reason For Visit Attending Provider ADM Date DC Date Status Disposition Source [facility] Outpatient Encounter [id number] 06/29 [facility] Outpatient Encounter [id number] CHAD CARO 08/11 [facility] MTMS BY PHARM EST 15 MIN [id number] Diagnos is: ICD-10- CM Z51.81 Encount er for therape utic drug level monitor BRADLEY Conway 09/07 [facility] Outpatient Encounter [id number] 09/29 [facility] MTMS BY PHARM EST 15 MIN [id number] Diagnos is: ICD-10- CM Z51.81 Encount er for therape utic drug level monitor GUSTAVO Car 09/29 [facility] Outpatient Encounter [id number] 12/29 [facility] Outpatient Encounter [id number] JOSE ERIC 01/02 [facility] Outpatient Encounter [id number] 01/09 [facility] Outpatient Encounter [id number] 01/29 [facility] MTMS BY PHARM EST 15 MIN [id number] Diagnos is: ICD-10- CM Z51.81 Encount er for therape utic drug level monitor GUSTAVO Car M 01/29 [facility] MTMS BY PHARM EST 15 MIN [id number] Diagnos is: ICD-10- CM Z76.0 Encount er for issue of repeat prescri ptGUSTAVO Howell GIBSON Frances 01/29 [facility] Outpatient Encounter [id number] 01/31 [facility] Outpatient Encounter [id number] 02/02 [facility] QNHP OL DIG ASSMT&MGMT 5-10 [id number] Diagnos is: ICD-10- CM Z51.81 Encount er for therape utic drug level monitor ing BRADLEY BOTELLO 02/05 [facility] Outpatient Encounter [id number] BOO THOMPSON 02/26 [facility] QNHP OL DIG ASSMT&MGMT 5-10 [id number] Diagnos is: ICD-10- CM Z51.81 Encount er for therape utic drug level monitor BRADLEY Conway 03/08 [facility] Outpatient Encounter [id number] 04/18 [facility] Outpatient Encounter [id number] JOSE ERIC 04/25 [facility] OFFICE O/P EST MOD 30 MIN [id number] Diagnos is: ICD-10- CM Z00.00 Encntr for general adult medical exam w/o abnorma l finding s MERLE BENAVIDEZ 05/03 [facility] Outpatient Encounter [id number] 05/07 [facility] IMMUNIZATI ON ADMIN [id number] Diagnos is: ICD-10- CM Z23 Encount er for immuniz ation CONDOR,RASHMI ORAH A 05/07 [facility] QNHP OL DIG ASSMT&MGMT 5-10 [id number] Diagnos is: ICD-10- CM Z51.81 Encount er for therape utic drug level monitor GUSTAVO Car 05/23 [facility] MTMS BY PHARM EST 15 MIN [id number] Diagnos is: ICD-10- CM Z51.81 Encount er for therape utic drug level monitor GUSTAVO Car 05/23 [facility] Outpatient Encounter [id number] FRANK PA 07/02 [facility] OFFICE O/P EST LOW 20 MIN [id number] Diagnos is: ICD-10- CM H40.123 2 Low-ten fam glaucnaren a, andre al, moderat e stage Miriam WU 07/03 [facility] Outpatient Encounter [id number] 07/13 [facility] Outpatient Encounter [id number] Diagnos is: ICD-10- CM Z12.2 Encntr screen for maligna nt neoplas m of respira tory organs Katie MISHRA JR 07/17 [facility] Outpatient Encounter [id number] MARKUS DAMON 07/19 [facility] VISIT LOW MDM [id number] Diagnos is: ICD-10- CM S92.911 A Unsp fractur e of right toe(s), init for clos fx MARKUS DAMON J 07/19 [facility] N [facility] Outpatient Encounter [id number] RENE DAMONIA J 07/19 [facility] N [facility] Outpatient Encounter [id number] JOSE ERIC IN J 07/30 [facility] Outpatient Encounter [id number] 08/06 [facility] Outpatient Encounter [id number] 08/09 [facility] OFFICE O/P EST MOD 30 MIN [id number] Diagnos is: ICD-10- CM K21.9 Gastro- esophag eal reflux disease without esophag itis HILARIO FINE S 09/12 [facility] Outpatient Encounter [id number] JOSE ERIC IN J 10/24 [facility] Outpatient Encounter [id number] 10/31 [facility] Social History Combined list of available smoking, tobacco, and other social history from Department of Defense and Veterans Affairs facilities. Social History Type Response Date Comment [facility] e Tobacco smoking status NHIS VA-TOBACCO USER EVERY DAY 05/03/2024 [facility] History of tobacco use VA-TOBACCO DOESNT USE WI 30 MIN WAKEUP 05/03/2024 [facility] History of tobacco use CT-TOBACCO DOESNT USE WI 30 MIN WAKEUP 07/08/2022 [facility] of [facility] of [facility] CURRENT NRT DECLINE 06/10/2021 [facility] DAY 04/02/2020 [facility] History of tobacco use ORYX ADMIT TOBACC O SCREEN NO 09/19/2019 [facility] History of tobacco use CURRENT TOBACCO USER 09/19/2019 [facility] History of tobacco use ORYX ADMIT TOBACC O SCREEN YES 09/19/2019 [facility] CO UNSEL NO 10/20/2018 [facility] History of tobacco use CURRENT TOBACCO USER 09/13/2018 [facility] History of tobacco use ORYX ADMIT TOBACC O SCREEN YES 09/13/2018 [facility] History of tobacco use TOBACCO USER OFFE RED MEDS 04/06/2018 [facility] History of tobacco use CURRENT TOBACCO USER 06/09/2017 [facility] History of tobacco use TOBACCO OFFERED [facility] 11/29/2016 [facility] History of tobacco use QUIT TOBACCO >12 MO and <7 YRS AGO 04/16/2015 [facility] History of tobacco use TOBACCO OFFERED P T MEDS (PROVIDER) 03/21/2014 [facility] History of tobacco use CURRENT TOBACCO USER 03/01/2013 [facility] History of tobacco use CURRENT TOBACCO USER 10/23/2010 [facility] History of tobacco use TOBACCO OFFERRED PT MEDS (PROVIDER) 04/02/2009 [facility] History of tobacco use CURRENT TOBACCO USER 07/16/2008 [facility] History of tobacco use CURRENT TOBACCO USER 06/26/2004 [facility] History of tobacco use CURRENT TOBACCO USER 06/06/2003 [facility] History of tobacco use CURRENT TOBACCO USER 08/15/2001 [facility] Plan of Care List of future care activities from [facility] facilities. Additional future care activities may be listed in the Assessment and Plan section. Date/Time Care Activity Care Activity Detail Facili ty 03/13/2025 AMBULATORY - MEDICINE AMBULATORY - MEDICI [facility] Advance Directives List of completed, amended, or rescinded Advance Directives on record at [facility] facilities. An actual copy of the Directive is not included. Date Advance Directive Provider Source 09/20/2019 [facility] DIRECTIVE DISCUSSION [facility] 06/06/2003 ADVANCE DIRECTIVE CARLOS ALBRIGHT [facility]
[2024-12-10] MEDS: MAGNESIUM SULFATE 3GM/D5W100ML 3 GM/100 ML BAG IVPB (21:33)
[2024-12-11] VITALS (12 sets, daily range): BP systolic 98–141; BP diastolic 79–97; PULSE 70–86; RESP 16; TEMP 36.5; O2SAT 98–100
--- NOTE | 2024-12-11 01:05 | ECG_ITS ---
Test Date: 2024-12-11 01:08:07 Measurements Intervals [place] Rate: 81 P: 77 DE: 168 QRS: 78 QRSD: 79 T: 78 QT: 359 QTc: 419 Interpretive Statements SINUS RHYTHM POSSIBLE LEFT ATRIAL ENLARGEMENT [-0.1mV P WAVE IN V1/V2] Compared to ECG 02/01/2024 23:36:52 NO SIGNIFICANT CHANGES Electronically Signed On 12-11-2024 14:24:23 CDT by Rosanne Gross M.D.
== END 2024-12-11 01:37 | disposition home or self-care (01) ==
PROVIDERS: Physician Assistant; Emergency Provider Emergency Medicine
DX: R20.2 Paresthesia of skin (principal); I10 Essential (primary) hypertension; E53.8 Deficiency of other specified B group vitamins; K21.9 Gastro-esophageal reflux disease without esophagitis; M19.90 Unspecified osteoarthritis, unspecified site; F17.210 Nicotine dependence, cigarettes, uncomplicated; Z96.653 Presence of artificial knee joint, bilateral; Z86.2 Personal history of diseases of the blood and blood-forming organs and certain disorders involving the immune mechanism; Z86.718 Personal history of other venous thrombosis and embolism
CPT/HCPCS: 36415; 70450; 72125; 80053; 83735; 85025; 85610; 85730; 93005; 93971; 96365; 96366; 99284; J3475